=== PATIENT | male | born 1930 | race Caucasian/White ===

== ENCOUNTER 2016-11-17 06:53 | Inpatient (IN) | payer OTHER, MEDICARE ==
[2016-11-17] VITALS (12 sets, daily range): BP systolic 98–157; BP diastolic 50–72; PULSE 60–108; RESP 18–30; TEMP 97–99.4; O2SAT 95–100
[~2016-11-17] VITALS: Ht 182.9 cm; Wt 80.9 kg
[~2016-11-17 06:53] MED LIST: 1-ME1LIQ PO; ALBU8I INH; ASPI81 PO; ATOR80TA41 PO; CARV6.25 PO; COZA100T PO; CYAN100017 PO; ECASA PO; GABA400C5 PO; IRON27TA PO; ISOS30 PO; LORTA5 PO; NITR.4 SL; NITR100 PO; POLYPOW5 XX; PROM25TA5 PO; PROT40TA PO; SYMB160A INH; TAMS0.4C67 PO; TICA90 PO; VITA5000 PO; ZOLP10TA3 PO
[2016-11-17] MEDS ORDERED: ASPIRIN 81 MG CHEW TAB PO ONE (07:00)
[2016-11-17] MEDS ORDERED: NITROGLYCERIN 2% OINT 1 GM PACKET TOP ONE (07:00)
[2016-11-17] MEDS ORDERED: methylPREDNISolone SOD SUCC 125 MG/2 ML VIAL IVP ONE (07:00)
[2016-11-17] MEDS ORDERED: SODIUM CHLORIDE 0.9% FLUSH 5 ML FLUSH IVF PRN (07:00)
[2016-11-17] MEDS: RESP: ALBUTEROL 2.5 MG/IPRATROPIUM 0.5 MG NEB (SCH) INH (07:11)
--- NOTE | 2016-11-17 07:22 | PD ---
HPI Chief Complaint: Chest Pain Time Seen by Provider: 06:59 Travel History International Travel<30 days: No Contact w/Intl Traveler<30days: No Traveled to known affect area: No History of Present Illness HPI This is an 86-year-old man who presents to the emergency department complaining of chest pain cough and shortness of breath. Patient has a history of CAD with previous CABG and stents. He is followed by Dr. Latif. He also has a history of asthma. He states he has not felt well for for 5 days. Over the past couple days he's had more trouble with cough and congestion but also worsening pressure-like discomfort in his chest and shortness of breath. He apparently was at [facility] yesterday with these symptoms. He reports that his initial testing was initially negative but he left last night, possibly against advice. He returns today because of worsening trouble breathing and worsening chest pain. History Past Medical History Narrative Medical CAD, [place], CABG Asthma Hyperlipidemia BPH Social History Alcohol Use: No Tobacco Use: No Allergies-Medications (Allergen,Severity, Reaction): Coded Allergies: No Known Allergies (Unverified , 11/17/16) Reported Meds & Prescriptions Reported Meds & Active Scripts Active Brilinta 90 Mg Tab (Ticagrelor) 90 Mg Tab 90 Mg PO BID 30 Days Phenergan (Promethazine HCl) 25 Mg Tab 25 Mg PO Q6H PRN Nitroglycerin Tab 0.4 Mg Sl (Nitroglycerin) 0.4 Mg Subl 0.4 Mg SL Q5M PRN Macrobid (Nitrofurantoin Monohyd Macrocr) 100 Mg Cap 100 Mg PO BIDPC 5 Days Lortab 5/325 Tab (Hydrocodone-Acetaminophen) 1 Tab Tab 1 Tab PO Q6H PRN Imdur 30 Mg (Isosorbide Mononitrate) 30 Mg Tabcr 30 Mg PO DAILY@07 30 Days Coreg (Carvedilol) 6.25 Mg Tab 6.25 Mg PO Q12 30 Days Aspirin 81 Mg Chew 81 Mg PO DAILY Ecotrin Regular Strength (Aspirin) 325 Mg Tabec 325 Mg PO DAILY 30 Days Reported Iron (Ferrous Gluconate) 27 Mg Tab 27 Mg PO DAILY Vitamin D-3 (Cholecalciferol) 5,000 Unit Tab 5,000 Unit PO DAILY B-12 (Cyanocobalamin) 1 000 Cap 1,000 Mcg PO DAILY Polyethylene Glycol 3350 (Polyethylene Glycol 3350 (Bulk) 3,350 Mg Liq 3,350 Mg XX Zolpidem Tartrate 10 Mg Tab 10 Mg PO HS Symbicort (Budesonide/Formoterol Fumarate) 160 Mcg/4.5 Mcg Aer 2 Puff INH BID * SHAKE WELL BEFORE USE * Flomax (Tamsulosin HCl) 0.4 Mg Cap 0.4 Mg PO DAILY Gabapentin 400 Mg Cap 400 Mg PO DAILY Lipitor 80 Mg Tab (Atorvastatin) 80 Mg Tab 80 Mg PO HS-RT Cozaar (Losartan Potassium) 100 Mg Tab 100 Mg PO DAILY Protonix (Pantoprazole Sodium) 40 Mg Tab 40 Mg PO DAILY Ventolin Hfa (Albuterol Sulfate) 8 Gm Aero 1 Puff INH Q4HPRN * SHAKE WELL BEFORE USE * Amlodipine Besylate 10 Mg Tab 10 Mg PO DAILY Review of Systems Except as stated in HPI: all other systems reviewed are Neg Physical Exam Narrative GENERAL: 86-year-old man, mild to moderate respiratory distress, appears anxious. SKIN: Warm, little bit moist. HEAD: Atraumatic. Normocephalic. EYES: Pupils equal and round. No scleral icterus. No injection or drainage. ENT: No nasal bleeding or discharge. Mucous membranes pink and moist. NECK: Trachea midline. No JVD. CARDIOVASCULAR: Regular rate and rhythm. No murmur appreciated. RESPIRATORY: Diminished breath sounds left base. Some tight wheezing throughout the posterior lung seo. A few scattered crackles. No rhonchi. GASTROINTESTINAL: Abdomen soft, non-tender, nondistended. Hepatic and splenic margins not palpable. MUSCULOSKELETAL: No obvious deformities. No significant edema. NEUROLOGICAL: Awake and alert. No obvious cranial nerve deficits. Motor grossly within normal limits. Normal speech. PSYCHIATRIC: Anxious. Data Data Last Documented VS Vital Signs Date Time Temp Pulse Resp B/P Pulse Ox O2 Delivery O2 Flow Rate FiO2 11/17/16 07:54 100 Nasal Cannula 2 11/17/16 07:54 93 24 157/72 11/17/16 06:59 99.4 Orders Complete Blood Count With Diff (11/17/16 06:59) Comprehensive Metabolic Panel (11/17/16 06:59) B-Type Natriuretic Peptide (11/17/16 06:59) Act Partial Throm Time (Ptt) (11/17/16 06:59) Prothrombin Time / Inr (Pt) (11/17/16 06:59) Magnesium (Mg) (11/17/16 06:59) Troponin I (11/17/16 06:59) Iv Access Insert/Monitor (11/17/16 06:59) Ecg Monitoring (11/17/16 06:59) Oximetry (11/17/16 06:59) Oxygen Administration (11/17/16 06:59) Chest, Single Ap (11/17/16 06:59) Sodium Chloride 0.9% Flush (Ns Flush) (11/17/16 07:00) Methylprednisolone So Succ Inj (Solumedr (11/17/16 07:00) Albuterol-Ipratropium Neb (Duoneb Neb) (11/17/16 07:00) Aspirin Chew (Aspirin Chew) (11/17/16 07:00) Nitroglycerin 2% Oint (Nitroglycerin 2% (11/17/16 07:00) Electrocardiogram (11/17/16 06:59) Influenzae A/B Antigen (11/17/16 07:21) Ceftriaxone Inj (Rocephin Inj) (11/17/16 08:15) Azithromycin Inj (Zithromax Inj) (11/17/16 08:15) Consult Cardiology (11/17/16 ) Admit Order (Ed Use Only) (11/17/16 ) Admit To Inpatient (11/17/16 ) Code Status (11/17/16 08:40) Vital Signs (Adult) Q4H (11/17/16 08:40) Activity Oob With Assistance (11/17/16 08:40) Diet Heart Healthy (11/17/16 Breakfast) Sodium Chloride 0.9% Flush (Ns Flush) (11/17/16 08:45) Sodium Chloride 0.9% Flush (Ns Flush) (11/17/16 09:00) Acetaminophen (Tylenol) (11/17/16 08:45) Ondansetron Inj (Zofran Inj) (11/17/16 08:45) Temazepam (Restoril) (11/17/16 08:45) Comprehensive Metabolic Panel (11/18/16 06:00) Complete Blood Count With Diff (11/18/16 06:00) Creatine Kinase (Cpk) (11/17/16 13:30) Creatine Kinase (Cpk) (11/17/16 19:30) Troponin I (11/17/16 13:30) Troponin I (11/17/16 19:30) Electrocardiogram (11/17/16 13:30) Electrocardiogram (11/17/16 19:30) Case Management Consult (11/17/16 08:40) Scd Bilateral/Knee High DORITA.BID (11/17/16 08:40) Cameron Bilateral/Knee High DORITA.QSHIFT (11/17/16 08:40) Acetaminophen (Tylenol) (11/17/16 08:45) Naloxone Inj (Narcan Inj) (11/17/16 08:45) Inpatient Certification (11/17/16 ) B-Type Natriuretic Peptide (11/18/16 06:00) Albuterol-Ipratropium Neb (Duoneb Neb) (11/17/16 08:45) Magnesium (Mg) (11/17/16 08:43) Phosphorus (Po4) (11/17/16 08:43) Pt Request For Service (11/17/16 08:43) Labs Laboratory Tests Test 11/17/16 07:15 White Blood Count 8.0 TH/MM3 Red Blood Count 3.36 MIL/MM3 Hemoglobin 10.8 GM/DL Hematocrit 31.6 % Mean Corpuscular Volume 93.9 FL Mean Corpuscular Hemoglobin 32.2 PG Mean Corpuscular Hemoglobin 34.3 % Concent Red Cell Distribution Width 14.8 % Platelet Count 170 TH/MM3 Mean Platelet Volume 8.3 FL Neutrophils (%) (Auto) 74.7 % Lymphocytes (%) (Auto) 15.5 % Monocytes (%) (Auto) 7.6 % Eosinophils (%) (Auto) 1.8 % Basophils (%) (Auto) 0.4 % Neutrophils # (Auto) 6.0 TH/MM3 Lymphocytes # (Auto) 1.2 TH/MM3 Monocytes # (Auto) 0.6 TH/MM3 Eosinophils # (Auto) 0.1 TH/MM3 Basophils # (Auto) 0.0 TH/MM3 CBC Comment DIFF FINAL Differential Comment Prothrombin Time 12.0 SEC Prothromb Time International 1.1 RATIO Ratio Activated Partial 30.7 SEC Thromboplast Time Sodium Level 142 MEQ/L Potassium Level 3.8 MEQ/L Chloride Level 109 MEQ/L Carbon Dioxide Level 23.9 MEQ/L Anion Gap 9 MEQ/L Blood Urea Nitrogen 11 MG/DL Creatinine 1.05 MG/DL Estimat Glomerular Filtration 67 ML/MIN Rate Random Glucose 117 MG/DL Calcium Level 8.6 MG/DL Magnesium Level 2.0 MG/DL Total Bilirubin 0.6 MG/DL Aspartate Amino Transf 22 U/L (AST/SGOT) Alanine Aminotransferase 15 U/L (ALT/SGPT) Alkaline Phosphatase 79 U/L Troponin I 0.46 NG/ML B-Type Natriuretic Peptide 716 PG/ML Total Protein 7.0 GM/DL Albumin 3.6 GM/DL [facility] Medical Decision Making Medical Screen Exam Complete: Yes Emergency Medical Condition: Yes Interpretation(s) My review of EKG: Normal sinus rhythm at a rate of 97, occasional PVC, left bundle branch block, no definite evidence of acute ischemia. Bibasilar patchy opacities atelectasis versus infiltrate. LABS: CBC unremarkable CMP unremarkable Troponin 0.46 BNP 716 Coags unremarkable Influenza negative Differential Diagnosis Pneumonia, asthma, ACS, influenza, other Narrative Course Medical decision making INITIAL: 86-year-old male presents to emergency department to 3 days of worsening cough congestion and wheezing associated with pressure-like chest discomfort. History of both CAD and asthma. In an outside hospital yesterday. EKG shows left bundle branch block, not significant change from previous. We' ll check x-ray, labs, aspirin, nitrates, bronchodilators, steroids, reassess. Chris Jean Baptiste MD Nov 17, 2016 07:22
[2016-11-17 07:31] LABS: BASOPHIL % 0.4 % (0.0-2.0); EOSINOPHIL # 0.1 TH/MM3 (0-0.4); EOSINOPHIL % 1.8 % (0.0-4.0); HEMATOCRIT 31.6 % (39.0-51.0); HEMO FLAGS DIFF FINAL; LYMPH % 15.5 % (9.0-44.0); LYMPHOCYTE # 1.2 TH/MM3 (1.0-4.8); MEAN CELL VOLUME 93.9 FL (80.0-100.0); MEAN CORPUSCULAR HEMOGLOBIN 32.2 PG (27.0-34.0); MEAN CORPUSCULAR HGB CONC 34.3 % (32.0-36.0); MONO % 7.6 % (0.0-8.0); NEUT % 74.7 % (16.0-70.0); PLATELET COUNT 170 TH/MM3 (150-450); RED BLOOD COUNT 3.36 MIL/MM3 (4.50-5.90); RED CELL DISTRIBUTION WIDTH 14.8 % (11.6-17.2)
[2016-11-17 07:37] LABS: APTT (PATIENT) 30.7 SEC (24.3-30.1); INTERNATIONAL NORMALIZED RATIO 1.1 RATIO
[2016-11-17 07:48] LABS: ALT (GPT) 15 U/L (12-78); ANION GAP 9 MEQ/L (5-15); AST (GOT) 22 U/L (15-37); BICARBONATE 23.9 MEQ/L (21.0-32.0); BLOOD UREA NITROGEN 11 MG/DL (7-18); CHLORIDE 109 MEQ/L (98-107); GLOMERULAR FILTRATION RATE 67 ML/MIN (>89); POTASSIUM 3.8 MEQ/L (3.5-5.1); SODIUM (NA) 142 MEQ/L (136-145)
[2016-11-17 07:51] LABS: ALKALINE PHOSPHATASE 79 U/L (45-117); TOTAL BILIRUBIN ADULT 0.6 MG/DL (0.2-1.0)
--- NOTE | 2016-11-17 08:03 | RADRPT ---
EXAM DATE/TIME: 11/17/2016 07:23 [place] COMPARISON: CHEST SINGLE AP, June 12, 2014, 19:16. INDICATIONS : Shortness of breath. MEDICAL HISTORY : None. SURGICAL HISTORY : CABG. ENCOUNTER: Initial ACUITY: 1 day PAIN SCORE: 0/10 LOCATION: Bilateral chest FINDINGS: A single view of the chest demonstrates diminished lung volumes with bibasilar patchy opacities. Prev ious CABG. Heart size borderline enlarged. The cardiomediastinal contours are unremarkable. Osseous structures are intact. CONCLUSION: Bibasilar patchy opacities could be atelectasis or infiltrate. Mundo Henderson MD on November 17, 2016 at 8:00 Board Certified Radiologist. This report was verified electronically.
[2016-11-17] MEDS ORDERED: cefTRIAXone INJ 1,000 MG in SODIUM CHLORIDE 0.9% INJ 100 ML IV ONE (08:15)
[2016-11-17] MEDS ORDERED: AZITHROMYCIN INJ 500 MG in SODIUM CHLOR 0.9% 250 ML INJ 250 ML IV ONE (08:15)
[2016-11-17] MEDS ORDERED: ACETAMINOPHEN 325 MG TAB PO PRN ×2 (08:45)
[2016-11-17] MEDS ORDERED: NALOXONE HCL 0.4 MG/ML AMP IV PRN (08:45)
[2016-11-17] MEDS ORDERED: ONDANSETRON HCL 4 MG/2 ML VIAL IVP PRN (08:45)
[2016-11-17] MEDS ORDERED: TEMAZEPAM 15 MG CAP PO PRN (08:45)
[2016-11-17] MEDS: SODIUM CHLORIDE 0.9% FLUSH 5 ML FLUSH FLUSH SCH ×2 (09:00→20:59)
[2016-11-17] MEDS ORDERED: SYMB160A INH (09:46)
[2016-11-17] MEDS ORDERED: ATOR1TAB18 PO (09:46)
[2016-11-17] MEDS ORDERED: AMLO10TA2 PO (09:46)
[2016-11-17] MEDS ORDERED: CARV12.5 PO (09:46)
[2016-11-17] MEDS ORDERED: TRAM50TA PO (09:46)
[2016-11-17] MEDS ORDERED: IPRAAER INH (09:46)
[2016-11-17] MEDS ORDERED: OMEP20TA PO (09:46)
[2016-11-17] MEDS ORDERED: GABA400C5 PO (09:46)
[2016-11-17] MEDS: RESP: ALBUTEROL 2.5 MG/IPRATROPIUM 0.5 MG NEB (PRN) NEB (11:23)
--- NOTE | 2016-11-17 12:12 | HHI.HP ---
[facility] Jay Chávez MD Admission Diagnosis PNA, r/o OR Diagnoses: (1) Community acquired pneumonia (2) Atypical chest pain (3) Hypertension (4) Coronary artery disease (5) Hyperlipidemia (6) Troponin level elevated Chief Complaint: Shortness of breath Travel History International Travel<30 Days: No Contact w/Intl Traveler <30 Da: No Traveled to Known Affected Are: No History of Present Illness 86 year-old male with a history of hypertension, CAD, prior history of CABG who presented to the ED for evaluation of shortness of breath 2 days along with atypical substernal chest pain. Patient was seen at [facility] on 11/16/16 and diagnosed with pneumonia for which he was treated with antibiotics, admitted for observation and had PE ruled out per patient account, however sign AMA. He Came today because, stated equal hardly breathe and he was having constant nonradiating substernal chest pain along with nonproductive cough. He denies any febrile episode. Patient states all imaging studies at [facility] where unremarkable. He has no GI bleed Review of Systems Other 12 systems reviewed and are negative except for the one mentioned in the history of present illness Past Family Social History Past Medical History CAD, [place], CABG Asthma Hyperlipidemia BPH Past Surgical History Cholecystectomy: Yes Coronary Artery Bypass Graft: Yes (X 3 VESSELS) Bilateral knees repair Reported Medications Brilinta 90 Mg Tab (Ticagrelor) 90 Mg Tab 90 Mg PO BID 30 Days Phenergan (Promethazine HCl) 25 Mg Tab 25 Mg PO Q6H PRN Nitroglycerin Tab 0.4 Mg Sl (Nitroglycerin) 0.4 Mg Subl 0.4 Mg SL Q5M PRN Macrobid (Nitrofurantoin Monohyd Macrocr) 100 Mg Cap 100 Mg PO BIDPC 5 Days Lortab 5/325 Tab (Hydrocodone-Acetaminophen) 1 Tab Tab 1 Tab PO Q6H PRN Imdur 30 Mg (Isosorbide Mononitrate) 30 Mg Tabcr 30 Mg PO DAILY@07 30 Days Coreg (Carvedilol) 6.25 Mg Tab 6.25 Mg PO Q12 30 Days Aspirin 81 Mg Chew 81 Mg PO DAILY Ecotrin Regular Strength (Aspirin) 325 Mg Tabec 325 Mg PO DAILY 30 Days Reported Iron (Ferrous Gluconate) 27 Mg Tab 27 Mg PO DAILY Vitamin D-3 (Cholecalciferol) 5,000 Unit Tab 5,000 Unit PO DAILY B-12 (Cyanocobalamin) 1 000 Cap 1,000 Mcg PO DAILY Polyethylene Glycol 3350 (Polyethylene Glycol 3350 (Bulk) 3,350 Mg Liq 3,350 Mg XX Zolpidem Tartrate 10 Mg Tab 10 Mg PO HS Symbicort (Budesonide/Formoterol Fumarate) 160 Mcg/4.5 Mcg Aer 2 Puff INH BID * SHAKE WELL BEFORE USE * Flomax (Tamsulosin HCl) 0.4 Mg Cap 0.4 Mg PO DAILY Gabapentin 400 Mg Cap 400 Mg PO DAILY Lipitor 80 Mg Tab (Atorvastatin) 80 Mg Tab 80 Mg PO HS-RT Cozaar (Losartan Potassium) 100 Mg Tab 100 Mg PO DAILY Protonix (Pantoprazole Sodium) 40 Mg Tab 40 Mg PO DAILY Ventolin Hfa (Albuterol Sulfate) 8 Gm Aero 1 Puff INH Q4HPRN * SHAKE WELL BEFORE USE * Amlodipine Besylate 10 Mg Tab 10 Mg PO DAILY Allergies: Coded Allergies: No Known Allergies (Unverified , 11/17/16) Family History He denies any family history of hypertension, diabetes, cancer Social History Alcohol Use: No Tobacco Use: No Physical Exam Vital Signs Vital Signs Date Time Temp Pulse Resp B/P Pulse Ox O2 Delivery O2 Flow Rate FiO2 11/17/16 10:47 98 18 121/63 100 Nasal Cannula 2 11/17/16 10:11 97 Nasal Cannula 2 11/17/16 10:05 105 18 116/67 97 Nasal Cannula 2 11/17/16 10:05 98 Nasal Cannula 2 11/17/16 10:01 105 18 116/67 98 Nasal Cannula 2 11/17/16 10:01 105 98 Nasal Cannula 2 11/17/16 07:54 100 Nasal Cannula 2 11/17/16 07:54 93 24 157/72 100 Nasal Cannula 2 11/17/16 07:54 93 100 Nasal Cannula 2 11/17/16 07:11 95 Nasal Cannula 4.00 11/17/16 07:03 98 Nasal Cannula 4 11/17/16 06:59 99.4 100 30 157/72 98 11/17/16 06:50 99 4.00 Physical Exam GENERAL: This is a well-nourished, well-developed patient, in no apparent distress. SKIN: No rashes, ecchymoses or lesions. Cool and dry. HEAD: Atraumatic. Normocephalic. No temporal or scalp tenderness. EYES: Pupils equal round and reactive. Extraocular motions intact. No scleral icterus. No injection or drainage. ENT: Nose without bleeding, purulent drainage or septal hematoma. Throat without erythema, tonsillar hypertrophy or exudate. Uvula midline. Airway patent. NECK: Trachea midline. No JVD or lymphadenopathy. Supple, nontender, no meningeal signs. CARDIOVASCULAR: Regular rate and rhythm without murmurs, gallops, or rubs. RESPIRATORY: Clear to auscultation. Breath sounds equal bilaterally. No wheezes , rales, or rhonchi. GASTROINTESTINAL: Abdomen soft, non-tender, nondistended. No hepato-splenomegaly , or palpable masses. No guarding. MUSCULOSKELETAL: Extremities without clubbing, cyanosis, or edema. No joint tenderness, effusion, or edema noted. No calf tenderness. Negative Homans sign bilaterally. NEUROLOGICAL: Awake and alert. Cranial nerves II through XII intact. Motor and sensory grossly within normal limits. Five out of 5 muscle strength in all muscle groups. Normal speech. Laboratory Laboratory Tests Test 11/17/16 07:15 White Blood Count 8.0 Red Blood Count 3.36 Hemoglobin 10.8 Hematocrit 31.6 Mean Corpuscular Volume 93.9 Mean Corpuscular Hemoglobin 32.2 Mean Corpuscular Hemoglobin 34.3 Concent Red Cell Distribution Width 14.8 Platelet Count 170 Mean Platelet Volume 8.3 Neutrophils (%) (Auto) 74.7 Lymphocytes (%) (Auto) 15.5 Monocytes (%) (Auto) 7.6 Eosinophils (%) (Auto) 1.8 Basophils (%) (Auto) 0.4 Neutrophils # (Auto) 6.0 Lymphocytes # (Auto) 1.2 Monocytes # (Auto) 0.6 Eosinophils # (Auto) 0.1 Basophils # (Auto) 0.0 CBC Comment DIFF FINAL Differential Comment Prothrombin Time 12.0 Prothromb Time International 1.1 Ratio Activated Partial 30.7 Thromboplast Time Sodium Level 142 Potassium Level 3.8 Chloride Level 109 Carbon Dioxide Level 23.9 Anion Gap 9 Blood Urea Nitrogen 11 Creatinine 1.05 Estimat Glomerular Filtration 67 Rate Random Glucose 117 Calcium Level 8.6 Magnesium Level 2.0 Total Bilirubin 0.6 Aspartate Amino Transf 22 (AST/SGOT) Alanine Aminotransferase 15 (ALT/SGPT) Alkaline Phosphatase 79 Troponin I 0.46 B-Type Natriuretic Peptide 716 Total Protein 7.0 Albumin 3.6 Date/Time Procedure Status Source Growth 11/17/16 07:45 Influenza Types A,B Antigen (RADHA) - Final Complete Nasal Washing NEGATIVE FOR FLU A AND B ANTIGEN.... Result Diagram: 11/17/1671411/17/1615 Imaging Last Impressions Chest X-Ray 11/17/16 0659 Signed Impressions: Service Date/Time: Tuesday, November 17, 2016 07:23 - CONCLUSION: Bibasilar patchy opacities could be atelectasis or infiltrate. Mundo Henderson MD Assessment and Plan Problem List: (1) Community acquired pneumonia ICD Code: J18.9 Status: Acute (2) Atypical chest pain ICD Code: R07.89 Status: Acute (3) Troponin level elevated ICD Code: R74.8 Status: Acute (4) Coronary artery disease ICD Code: I25.9 Status: Acute (5) Hyperlipidemia ICD Code: E78.5 Status: Acute (6) Hypertension ICD Code: I10 Status: Acute Assessment and Plan 86-year-old male with 2-Mxckbtqpp-upctrqzn pneumonia: Status post azithromycin and Rocephin IV 1 in ED, continue with antibiotics and monitor culture. Chest x-ray noted and reviewed by me with finding of bypass opacity. Influenza A and B antigens negative . Check sputum culture. Request all imagine studies from [facility] and consider CTA to rule out PE if not performed 2-Atypical chest pain: May be secondary to current infectious process however secondary to elevated troponin I rule out ACS per protocol with serial cardiac enzyme and EKGs 3-History of CAD and now patient with elevated troponin I: CABG in the , heart catheterization 06/13/14 with stenting of MONTANEZ to LAD. ACS rule out per protocol with serial cardiac enzyme and EKG pending evaluation from cardiology. Resume Coreg, Lipitor and aspirin. Nitroglycerin supplement when necessary 4-Hypertension: Resume Coreg and Norvasc 5-Hyperlipidemia: Resume Lipitor 6-History of COPD: No current exacerbation, chest x-ray noted and reviewed by me. We will request all imagine studies from [facility]. Continue with Symbicort, DuoNeb when necessary 7-DVT prophylaxis: Lovenox Code Status Full code Discussed Condition With Patient, ED physician Physician Certification 2 Midnight Certification Type: Admission for Inpatient Services Order for Inpatient Services The services are ordered in accordance with Medicare regulations or non- Medicare payer requirements, as applicable. In the case of services not specified as inpatient-only, they are appropriately provided as inpatient services in accordance with the 2-midnight benchmark. Estimated LOS (days): 2 days is the estimated time the patient will need to remain in the hospital, assuming treatment plan goals are met and no additional complications. Post-Hospital Plan: Not yet determined Mundo Molina MD Nov 17, 2016 12:12
[2016-11-17] MEDS: ALPRAZolam 0.5 MG TAB PO PRN (14:28)
[2016-11-17] MEDS ORDERED: diphenhydrAMINE HCL 50 MG CAP PO SCH (15:15)
[2016-11-17] MEDS ORDERED: ASPIRIN 325 MG TAB PO SCH (15:15)
[2016-11-17] MEDS ORDERED: DIAZEPAM 10 MG TAB PO SCH (15:15)
--- NOTE | 2016-11-17 18:22 | MB ---
cc: TEODORO OLIVO MD, GLEN DATE OF CONSULTATION: 11/17/2016 REASON FOR CONSULTATION: Chest pain, abnormal troponin level. HISTORY OF PRESENT ILLNESS: The patient is an 86 year-old white male followed in our office by Dr. Teodoro Olivo with a history of coronary artery disease, peripheral vascular disease, hypertension, hyperlipidemia, chronic left bundle-branch block, who initially presented to [facility] a couple of days ago with complaints of increasing shortness of breath and chest discomfort as well as an overall nonproductive cough. He was recommended admission there but he signed out against medical advice. CT angiogram of the chest was obtained showing no evidence for pulmonary embolism. There was suggestion of very small bilateral pleural effusions. The patient states he has been experiencing progressively worsening dyspnea over the last few weeks especially over the last several days. During this time period he has had a minimal non-productive cough without fevers, hemoptysis. In the last two days he has had episodic substernal chest "burning," especially severe when he came to the emergency department here at [place]. He believes the episode of chest burning lasted about two hours and was associated with severe shortness of breath. Since coming to the hospital he has had no further chest discomfort and his dyspnea has overall improved. He denies dizziness, syncope, near-syncope, palpitations, pedal edema, paroxysmal nocturnal dyspnea. He has been somewhat noncompliant with daily aspirin. PAST MEDICAL HISTORY: 1. History of abdominal aortic aneurysm apparently status post repair. 2. Coronary disease status post bypass surgery 1996 with placement of three stents in 2008 and placement of a 2.25-mm Resolute stent at the anastomosis site of the left internal mammary artery to the LAD May 2014. 3. COPD. 4. Gastroesophageal reflux disease. 5. Hyperlipidemia. 6. Hypertension 7. Ischemic cardiomyopathy, reportedly with ejection fraction of approximately 40%. 8. Chronic left bundle-branch block. 9. Subdural hematoma caused by head trauma after a fall 04/10/2015. 10. Paroxysmal atrial fibrillation apparently diagnosed about six months ago. CARDIAC MEDICATIONS AT HOME: 1. Amlodipine 10 mg daily. 2. Cozaar 100 milligrams qd. 3. Lipitor or 80 mg q.h.s. 4. Aspirin 81 mg daily. 5. Coreg 6.25 mg b.i.d. 6. Imdur 30 milligrams daily 7. Brilinta 90 mg b.i.d. ALLERGIES NO KNOWN DRUG ALLERGIES. FAMILY HISTORY Noncontributory. SOCIAL HISTORY The patient is a former smoker. There is no history of alcohol abuse. REVIEW OF SYSTEMS: As in the history of present illness otherwise negative or noncontributory. He also denies headache, abdominal pain, melena, dyspepsia, bright red blood per rectum. PHYSICAL EXAMINATION VITAL SIGNS: Blood pressure 128/71 with a pulse of 108, respirations 20. GENERAL: He is a well-developed, well-nourished white male in no acute distress HEENT examination: Jugular venous pressure is normal. Carotid pulses are 2+ bilaterally and without bruits. Chest: Examination of the chest reveals unlabored respiratory effort with diminished breath sounds diffusely. Cardiac examination: He has a regular rhythm and rate without S3-S4 or murmur. Abdominal examination: He has a soft, nontender abdomen. Bowel sounds are present. There is no definite hepatosplenomegaly. Extremities: Reveals no clubbing, cyanosis or edema. Femoral pulses are 2+ bilaterally. LABORATORY DATA: WBC 8.0, hemoglobin 10.8, platelets 170, potassium 3.8, BUN 11, creatinine 1.05, troponin 0.46, CK is pending. Chest x-ray: Shows bibasilar patchy opacities possibly atelectasis or infiltrate. EKG: Shows sinus rhythm with occasional PVC, left bundle-branch block. IMPRESSION Symptoms suggestive of recurrent angina in an unstable pattern in this 86-year-old white male with a history of known coronary artery disease status post surgical and percutaneous coronary interventions in the past, history of paroxysmal atrial fibrillation, peripheral vascular disease, ischemic cardiomyopathy, COPD. EKG is nondiagnostic due to chronic left bundle branch block. Troponin level is slightly abnormal at 0.46 (as I recall at [facility] 2 days ago it was only 0.04). He did have residual borderline disease in his vein graft to the right coronary artery seen on cardiac catheterization a couple years ago, treated medically. He may have had progression of disease in this bypass graft. Because of the instability of his symptoms and the abnormal troponin level, I have recommended he undergo cardiac catheterization with possible percutaneous coronary or graft intervention The nature of these procedures and potential risks have been outlined to the patient who agrees to proceed. With respect to his thromboembolic risk with his history of paroxysmal atrial fibrillation, it is at least moderately elevated. The patient states he was on anticoagulation therapy, possibly Eliquis, in the past and he is unsure why it was discontinued. He did have discontinuation of Brilinta in March 2015 about 9 months after placement of his stents in the left internal mammary artery anastomosis site. RECOMMENDATIONS 1. Cardiac catheterization tomorrow. 2. Continue his usual home cardiac medications. 3. Will leave decisions regarding anticoagulation therapy for his paroxysmal atrial fibrillation with Dr. Olivo in the near future on outpatient follow up. MD ANTON Love/HARI /3:03 PM /4:50 PM MTDD
[2016-11-17] MEDS: PANTOPRAZOLE SOD 20 MG DELAYED RELEASE TAB PO SCH (20:57)
[2016-11-17] MEDS: GABAPENTIN 400 MG CAP PO SCH (20:57)
[2016-11-17] MEDS: BUDESONIDE-FORMOTEROL 160/4.5 MCG INHALER INH SCH (20:58)
[2016-11-17] MEDS: ATORVASTATIN 40 MG TAB PO SCH (20:58)
--- NOTE | 2016-11-17 21:54 | EKG ---
Date Performed: 11/17/2016 Time Performed: 06:59:09 PTAGE: 86 years EKG: Sinus rhythm WITH OCCASIONAL VENTRICULAR PREMATURE COMPLEXES LEFT BUNDLE BRANCH BLOCK ABNORMAL ECG PREVIOUS TRACING : 06/17/2014 09.31 Compared to the previous tracing, rate faster DOCTOR: Lily Connors Interpretating Date/Time 11/17/2016 21:53:30
--- NOTE | 2016-11-17 22:33 | EKG ---
Date Performed: 11/17/2016 Time Performed: 18:36:52 PTAGE: 86 years EKG: Sinus rhythm LEFT BUNDLE BRANCH BLOCK ABNORMAL ECG PREVIOUS TRACING : 11/17/2016 06.59 Compared to prior tracing no significant change DOCTOR: Parmjit Shin Interpretating Date/Time 11/17/2016 22:31:49
[2016-11-17] MEDS ORDERED: HEPARIN SODIUM - IV 10,000 UNITS/10 ML VIAL IV ONE (22:45)
[2016-11-17] MEDS ORDERED: HEPARIN-D5W INJ 250 ML IV SCH (22:45)
[2016-11-17] MEDS ORDERED: TIROFIBAN BOLUS IV ONE (23:15)
[2016-11-18] VITALS (19 sets, daily range): BP systolic 80–150; BP diastolic 42–74; PULSE 57–96; RESP 16–34; TEMP 97–98.6; O2SAT 84–100
[2016-11-18] MEDS: NITROGLYCERIN 0.4 MG SL 25 TABS/BTL SL PRN ×3 (00:27→01:57)
[2016-11-18 00:57] LABS: AUTOMATED NEUTROPHIL # 4.8 TH/MM3 (1.8-7.7); HEMATOCRIT 30.8 % (39.0-51.0); HEMO FLAGS DIFF FINAL; LYMPH % 9.2 % (9.0-44.0); LYMPHOCYTE # 0.5 TH/MM3 (1.0-4.8); MEAN CELL VOLUME 94.1 FL (80.0-100.0); MEAN CORPUSCULAR HEMOGLOBIN 32.6 PG (27.0-34.0); MEAN CORPUSCULAR HGB CONC 34.6 % (32.0-36.0); MONO % 1.7 % (0.0-8.0); NEUT % 89.1 % (16.0-70.0); PLATELET COUNT 169 TH/MM3 (150-450); RED BLOOD COUNT 3.27 MIL/MM3 (4.50-5.90); RED CELL DISTRIBUTION WIDTH 14.9 % (11.6-17.2); WHITE BLOOD COUNT 5.3 TH/MM3 (4.0-11.0)
[2016-11-18 01:21] LABS: APTT (PATIENT) 33.4 SEC (24.3-30.1); PROTHROMBIN TIME - PATIENT 10.8 SEC (9.8-11.6)
[2016-11-18] MEDS ORDERED: CHLORHEXIDINE GLUCONATE 2 % 1 PACK (2 CLOTHS)(extra cloths) TOP PRN (01:45)
[2016-11-18] MEDS: TIROFIBAN INFUSION INJ 250 ML IV SCH ×2 (01:46→16:51)
[2016-11-18] MEDS: ALPRAZolam 0.5 MG TAB PO PRN ×2 (01:57→08:00)
[2016-11-18] MEDS: CHLORHEXIDINE GLUCONATE 2 % 1 PACK (2 CLOTHS)(taper/protocol) TOP SCH ×2 (04:00→22:43)
[2016-11-18 07:17] LABS: AUTOMATED NEUTROPHIL # 5.2 TH/MM3 (1.8-7.7); BASOPHIL % 0.1 % (0.0-2.0); HEMATOCRIT 26.5 % (39.0-51.0); HEMO FLAGS DIFF FINAL; LYMPH % 8.1 % (9.0-44.0); LYMPHOCYTE # 0.5 TH/MM3 (1.0-4.8); MEAN CELL VOLUME 93.7 FL (80.0-100.0); MEAN CORPUSCULAR HEMOGLOBIN 32.2 PG (27.0-34.0); MEAN CORPUSCULAR HGB CONC 34.4 % (32.0-36.0); MONO % 2.7 % (0.0-8.0); NEUT % 89.1 % (16.0-70.0); PLATELET COUNT 152 TH/MM3 (150-450); RED BLOOD COUNT 2.83 MIL/MM3 (4.50-5.90); RED CELL DISTRIBUTION WIDTH 14.6 % (11.6-17.2); WHITE BLOOD COUNT 5.9 TH/MM3 (4.0-11.0)
[2016-11-18 07:28] LABS: APTT (PATIENT) 106.3 SEC (24.3-30.1)
[2016-11-18] MEDS ORDERED: RESP: ALBUTEROL 2.5 MG/IPRATROPIUM 0.5 MG NEB (SCH) ONE (07:41)
[2016-11-18] MEDS: RESP: ALBUTEROL 2.5 MG/IPRATROPIUM 0.5 MG NEB (PRN) NEB ×5 (07:43→19:24)
[2016-11-18 08:21] LABS: ALKALINE PHOSPHATASE 58 U/L (45-117); ALT (GPT) 13 U/L (12-78); ANION GAP 9 MEQ/L (5-15); AST (GOT) 16 U/L (15-37); BICARBONATE 22.8 MEQ/L (21.0-32.0); BLOOD UREA NITROGEN 19 MG/DL (7-18); CHLORIDE 107 MEQ/L (98-107); GLOMERULAR FILTRATION RATE 69 ML/MIN (>89); POTASSIUM 4.2 MEQ/L (3.5-5.1); SODIUM (NA) 139 MEQ/L (136-145); TOTAL BILIRUBIN ADULT 0.6 MG/DL (0.2-1.0)
--- NOTE | 2016-11-18 08:30 | PD.CARD.PN ---
Subjective Subjective Remarks Emotionally upset this morning. Moderate dyspnea earlier, better now. Brief few minutes of substernal chest burning earlier. No dizziness, nausea, palpitations. Objective Medications Item Value Date Time Amlodipine 10 mg 11/18/16 0900 Besylate DAILY/PO (Norvasc) Carvedilol 12.5 mg 11/18/16 0900 (Coreg) DAILY/PO Aspirin 81 mg 11/18/16 0900 (Ecotrin Ec) DAILY/PO Tirofiban/Sodium 250 ml @ 15.894 mls/hr 11/17/16 2320 Chloride [id number]/IV 11/18/16 0146 Heparin Sodium/ 250 ml @ 0 mls/hr 11/17/16 2245 Dextrose TITRATE/IV 11/18/16 0150 Atorvastatin 40 mg 11/17/16 2100 Calcium HS/PO 11/17/162057 (Lipitor) Vital Signs / I&O Vital Signs Date Time Temp Pulse Resp B/P Pulse Ox O2 Delivery O2 Flow Rate FiO2 11/18/16 08:16 98 Nasal Cannula 2.00 11/18/16 07:43 98 Nasal Cannula 4.00 11/18/16 04:00 98.2 75 23 143/66 98 11/18/16 03:28 98 Nasal Cannula 4.00 11/18/16 01:26 98.0 78 16 137/63 97 11/18/16 01:00 84 11/18/16 00:29 88 95 11/18/16 00:00 97.3 76 18 150/70 94 11/17/16 20:00 97.5 86 18 154/67 98 11/17/16 16:10 94 11/17/16 15:55 97.7 89 20 126/60 97 11/17/16 12:08 97.3 108 20 128/71 99 11/17/16 10:47 98 18 121/63 100 Nasal Cannula 2 11/17/16 10:11 97 Nasal Cannula 2 11/17/16 10:05 105 18 116/67 97 Nasal Cannula 2 11/17/16 10:05 98 Nasal Cannula 2 11/17/16 10:01 105 18 116/67 98 Nasal Cannula 2 11/17/16 10:01 105 98 Nasal Cannula 2 I/O 11/17/16 11/17/16 11/17/16 11/18/16 11/18/1611/18/17 07:00 15:00 23:00 07:00 15:00 23:00 Intake Total 240 ml 360 ml 154 ml Output Total 300 ml Balance 240 ml 360 ml -146 ml Intake Oral 240 ml 360 ml IV Total 154 ml Output Urine Total 300 ml # Voids 2 Physical Exam GENERAL: Well developed, well nourished. No acute distress. HEENT: Jugular venous pressure is normal. CHEST: Lungs clear to auscultation bilaterally. Unlabored respiratory effort. CARDIAC: Regular rate and rhythm without S3, S4, or murmur. ABDOMEN: Soft, nontender, no hepatosplenomegaly. Bowel sounds present. EXTREMITIES: No clubbing, cyanosis, or edema. Laboratory Laboratory Tests Test 11/17/16 11/17/16 11/17/16 11/18/16 12:50 14:07 20:04 00:27 Magnesium Level 2.2 MG/DL Total Creatine Kinase 74 U/L 82 U/L Troponin I 0.72 NG/ML 0.92 NG/ML Phosphorus Level 2.0 MG/DL White Blood Count 5.3 TH/MM3 Red Blood Count 3.27 MIL/MM3 Hemoglobin 10.7 GM/DL Hematocrit 30.8 % Mean Corpuscular Volume 94.1 FL Mean Corpuscular Hemoglobin 32.6 PG Mean Corpuscular Hemoglobin 34.6 % Concent Red Cell Distribution Width 14.9 % Platelet Count 169 TH/MM3 Mean Platelet Volume 8.8 FL Neutrophils (%) (Auto) 89.1 % Lymphocytes (%) (Auto) 9.2 % Monocytes (%) (Auto) 1.7 % Eosinophils (%) (Auto) 0.0 % Basophils (%) (Auto) 0.0 % Neutrophils # (Auto) 4.8 TH/MM3 Lymphocytes # (Auto) 0.5 TH/MM3 Monocytes # (Auto) 0.1 TH/MM3 Eosinophils # (Auto) 0.0 TH/MM3 Basophils # (Auto) 0.0 TH/MM3 CBC Comment DIFF FINAL Differential Comment Prothrombin Time 10.8 SEC Prothromb Time International 1.0 RATIO Ratio Activated Partial 33.4 SEC Thromboplast Time Test 11/18/16 11/18/16 01:28 05:50 Nasal Screen MRSA (PCR) NEGATIVE White Blood Count 5.9 TH/MM3 Red Blood Count 2.83 MIL/MM3 Hemoglobin 9.1 GM/DL Hematocrit 26.5 % Mean Corpuscular Volume 93.7 FL Mean Corpuscular Hemoglobin 32.2 PG Mean Corpuscular Hemoglobin 34.4 % Concent Red Cell Distribution Width 14.6 % Platelet Count 152 TH/MM3 Mean Platelet Volume 9.0 FL Neutrophils (%) (Auto) 89.1 % Lymphocytes (%) (Auto) 8.1 % Monocytes (%) (Auto) 2.7 % Eosinophils (%) (Auto) 0.0 % Basophils (%) (Auto) 0.1 % Neutrophils # (Auto) 5.2 TH/MM3 Lymphocytes # (Auto) 0.5 TH/MM3 Monocytes # (Auto) 0.2 TH/MM3 Eosinophils # (Auto) 0.0 TH/MM3 Basophils # (Auto) 0.0 TH/MM3 CBC Comment DIFF FINAL Differential Comment Activated Partial 106.3 SEC Thromboplast Time Sodium Level 139 MEQ/L Potassium Level 4.2 MEQ/L Chloride Level 107 MEQ/L Carbon Dioxide Level 22.8 MEQ/L Anion Gap 9 MEQ/L Blood Urea Nitrogen 19 MG/DL Creatinine 1.02 MG/DL Estimat Glomerular Filtration 69 ML/MIN Rate Random Glucose 145 MG/DL Calcium Level 8.6 MG/DL Total Bilirubin 0.6 MG/DL Aspartate Amino Transf 16 U/L (AST/SGOT) Alanine Aminotransferase 13 U/L (ALT/SGPT) Alkaline Phosphatase 58 U/L B-Type Natriuretic Peptide 932 PG/ML Total Protein 6.2 GM/DL Albumin 3.0 GM/DL Assessment and Plan Problem List: (1) Coronary artery disease Assessment and Plan: Recurrent angina this morning when upset with nursing staff, o/w stable overnight. Troponin levels suggestive of NSTEMI. Suspect he has had progression of disease in his vein graft to the RCA. For cath today. Continue heparin and Aggrastat drips, aspirin. (2) Hypertension Assessment and Plan: Mildly elevated BP's. Continue beta tavares, add JOVITA-I . (3) Paroxysmal atrial fibrillation Assessment and Plan: Remains in NSR. Unclear reason patient taken off anticoagulation therapy in the past. Will leave decision regarding anticoagulation to Dr. Olivo on outpatient f/u. Code Status full code Discussed Condition With patient Problem Qualifiers (1) Coronary artery disease: Qualified Code: I25.700 - Coronary artery disease involving coronary bypass graft of [place] heart with unstable angina pectoris (2) Hypertension: Qualified Code: I10 - Essential hypertension Herbert Gomez MD Nov 18, 2016 08:30
--- NOTE | 2016-11-18 08:40 | HHI.PR ---
Subjective Remarks Follow-up non-ST elevation MA/atypical chest pain/community acquired pneumonia 11/18/16-patient seen and examined, had episode of chest pain last night. Plan for heart catheterization per cardiology today. Currently afebrile. Objective Vitals Vital Signs Date Time Temp Pulse Resp B/P Pulse Ox O2 Delivery O2 Flow Rate FiO2 11/18/16 08:16 98 Nasal Cannula 2.00 11/18/16 07:43 98 Nasal Cannula 4.00 11/18/16 04:00 98.2 75 23 143/66 98 11/18/16 03:28 98 Nasal Cannula 4.00 11/18/16 01:26 98.0 78 16 137/63 97 11/18/16 01:00 84 11/18/16 00:29 88 95 11/18/16 00:00 97.3 76 18 150/70 94 11/17/16 20:00 97.5 86 18 154/67 98 11/17/16 16:10 94 11/17/16 15:55 97.7 89 20 126/60 97 11/17/16 12:08 97.3 108 20 128/71 99 11/17/16 10:47 98 18 121/63 100 Nasal Cannula 2 11/17/16 10:11 97 Nasal Cannula 2 11/17/16 10:05 105 18 116/67 97 Nasal Cannula 2 11/17/16 10:05 98 Nasal Cannula 2 11/17/16 10:01 105 18 116/67 98 Nasal Cannula 2 11/17/16 10:01 105 98 Nasal Cannula 2 I/O 11/17/16 11/17/16 11/17/16 11/18/16 11/18/16 11/18/16 07:00 15:00 23:00 07:00 15:00 23:00 Intake Total 240 ml 360 ml 154 ml Output Total 300 ml Balance 240 ml 360 ml -146 ml Intake Oral 240 ml 360 ml IV Total 154 ml Output Urine Total 300 ml # Voids 2 Result Diagram: 11/18/16 0550 11/18/16 0550 Imaging Last Impressions Chest X-Ray 11/17/16 0659 Signed Impressions: Service Date/Time: Thursday, November 17, 2016 07:23 - CONCLUSION: Bibasilar patchy opacities could be atelectasis or infiltrate. Mundo Henderson MD Objective Remarks GENERAL: NAD SKIN: Warm and dry. HEAD: Normocephalic. EYES: No scleral icterus. No injection or drainage. NECK: Supple, trachea midline. No JVD or lymphadenopathy. CARDIOVASCULAR: Regular rate and rhythm without murmurs, gallops, or rubs. RESPIRATORY: Breath sounds equal bilaterally. No accessory muscle use. GASTROINTESTINAL: Abdomen soft, non-tender, nondistended. MUSCULOSKELETAL: No cyanosis, or edema. BACK: Nontender without obvious deformity. No CVA tenderness. A/P Problem List: (1) Community acquired pneumonia ICD Code: J18.9 Status: Acute (2) Atypical chest pain ICD Code: R07.89 Status: Acute (3) Troponin level elevated ICD Code: R74.8 Status: Acute (4) Coronary artery disease ICD Code: I25.9 Status: Acute (5) Hyperlipidemia ICD Code: E78.5 Status: Acute (6) Hypertension ICD Code: I10 Status: Acute (7) Paroxysmal atrial fibrillation ICD Code: I48.0 Status: Acute (8) Non-ST elevation MA (NSTEMI) ICD Code: I21.4 Status: Acute Assessment and Plan 86-year-old male with 3-[id number]-vgricplh pneumonia: Status post azithromycin and Rocephin IV 1 in ED, continue with antibiotics and monitor culture. Chest x-ray with finding of opacity. Influenza A and B antigens negative . Monitor sputum culture 2-non-ST elevation MA /Atypical chest pain: Elevated cardiac enzyme, plan for left heart catheterization today 11/18/16. Continue with heparin drip, nitroglycerin, Coreg, aspirin, Vasotec, Lipitor. Check 2-D echo 3-History of CAD, paroxysmal A. fib : CABG in the , heart catheterization 06/13/14 with stenting of MONTANEZ to LAD. Cardiology to decide on oral anticoagulation 4-Hypertension: Continue Coreg, Vasotec and Norvasc 5-Hyperlipidemia: R on Lipitor 6-History of COPD: No current exacerbation, chest x-ray noted and reviewed. Continue with Symbicort, DuoNeb when necessary 7-DVT prophylaxis: Heparin drip Problem Qualifiers (1) Coronary artery disease: Qualified Code: I25.700 - Coronary artery disease involving coronary bypass graft of [place] heart with unstable angina pectoris (2) Hypertension: Qualified Code: I10 - Essential hypertension Mundo Molina MD Nov 18, 2016 08:40
[2016-11-18] MEDS: cefTRIAXone INJ 1,000 MG in SODIUM CHLORIDE 0.9% INJ 100 ML IV SCH (09:00)
[2016-11-18] MEDS: BUDESONIDE-FORMOTEROL 160/4.5 MCG INHALER INH SCH ×2 (09:00→21:00)
[2016-11-18] MEDS ORDERED: ENOXAPARIN SODIUM 40 MG/0.4 ML SYRINGE SQ SCH (09:00)
[2016-11-18] MEDS ORDERED: CARVEDILOL 12.5 MG TAB PO SCH (09:00)
[2016-11-18] MEDS: SODIUM CHLORIDE 0.9% FLUSH 5 ML FLUSH FLUSH SCH ×2 (09:00→22:44)
[2016-11-18] MEDS ORDERED: MORPHINE SULFATE 4 MG/ML INJ IV PUSH PRN (09:45)
[2016-11-18] MEDS: SODIUM CHLOR 0.9% 1000 ML INJ 1,000 ML IV SCH (10:04)
[2016-11-18] MEDS: CARVEDILOL 12.5 MG TAB PO SCH (10:05)
[2016-11-18] MEDS: ASPIRIN EC 81 MG TABEC PO SCH (10:05)
[2016-11-18] MEDS: PANTOPRAZOLE SOD 20 MG DELAYED RELEASE TAB PO SCH ×2 (10:05→22:44)
[2016-11-18] MEDS: ENALAPRIL MALEATE 5 MG TAB PO SCH (10:05)
[2016-11-18 13:46] LABS: APTT (PATIENT) 45.2 SEC (24.3-30.1)
--- NOTE | 2016-11-18 15:47 | EC ---
Study Study Date:11/18/2016 STUDY CONCLUSIONS SUMMARY - Left ventricle: The cavity size was normal. Systolic function was moderately reduced. The estimated ejection fraction was in the range of 35% to 40%. Akinesis of the mid-distal anteroseptal and anterior myocardium; consistent with infarction. - Aortic valve: Mild to moderate regurgitation. - Mitral valve: Severe regurgitation. - Pulmonary arteries: PA peak pressure: 67mm Hg (S). - Pericardium, extracardiac: There was a left pleural effusion. If LV function is below 40, please consider prescribing an ACEI or ARB or document rationale for non-use. PROCEDURE DATA STUDY STATUS: Elective. Procedure: Transthoracic echocardiography. Image quality was good. Scanning was performed from the parasternal, apical, and subcostal acoustic windows. Study completion: The patient tolerated the procedure well. Transthoracic echocardiography. M-mode, complete 2D, complete spectral Doppler, and color Doppler. Patient status: Inpatient. CARDIAC ANATOMY LEFT VENTRICLE: The cavity size was normal. Systolic function was moderately reduced. The estimated ejection fraction was in the range of 35% to 40%. Regional wall motion abnormalities: Akinesis of the mid-distal anteroseptal and anterior myocardium; consistent with infarction. AORTIC VALVE: The valve appears to be grossly normal. Doppler: There was no stenosis. Mild to moderate regurgitation. MITRAL VALVE: The valve appears to be grossly normal. Doppler: There was no evidence for stenosis. Severe regurgitation. Mean gradient: 1mm Hg (D). Peak gradient: 3mm Hg (D). RIGHT VENTRICLE: The cavity size was normal. PULMONIC VALVE: Not well visualized. TRICUSPID VALVE: The valve appears to be grossly normal. Doppler: There was no evidence for stenosis. Trace regurgitation. PERICARDIUM: There was no pericardial effusion. Pleura: There was a left pleural effusion. BASIC MEASUREMENTS ADULT Normal Left ventricle LV internal dimension, ED, chordal level, *42.2 mm 43-52 PLAX LV internal dimension, ES, chordal level, 37.3 mm 23-38 PLAX Fractional shortening, chordal level, PLAX *12 % >29 LV posterior wall thickness, ED 7.5 mm IVS/LVPW ratio, ED *1.49 <1.3 Ventricular septum Septal thickness, ED 11.2 mm Left atrium Anterior-posterior dimension 43 mm Right ventricle RV internal dimension, ED, PLAX 21 mm 19-38 DOPPLER MEASUREMENTS ADULT Normal Main pulmonary artery Pressure, S *67 mm Hg =30 Aortic valve VTI, S 35.2 cm Mitral valve Peak E-wave velocity 112 cm/s Peak A-wave velocity 32.7 cm/s Mean velocity, D 57.8 cm/s Mean gradient, D 1 mm Hg Peak gradient, D 3 mm Hg Peak E/A ratio 3.4 Maximal regurgitant velocity 506 cm/s Tricuspid valve Regurgitant peak velocity 362 cm/s Peak RV-RA gradient, S 52 mm Hg Maximal regurgitant velocity 362 cm/s Systemic veins Estimated CVP 15 mm Hg Right ventricle RV pressure, S *67 mm Hg <30 LEGEND: Mean values are shown as u=mean value. Asterisk (*) lorenzana values outside specified normal range. Prepared and signed by Parmjit Shin [id number]
[2016-11-18] MEDS ORDERED: ALPRAZolam 0.5 MG TAB PO PRN (17:00)
[2016-11-18] MEDS ORDERED: MIDAZOLAM HCL 2 MG/2 ML VIAL ONE ×2 (17:09→18:13)
[2016-11-18] MEDS ORDERED: HEPARIN-NS/PF INJ 500 ML ONE ×2 (17:09→18:09)
[2016-11-18] MEDS ORDERED: MIDAZOLAM HCL 2 MG/2 ML VIAL IV ONE ×2 (17:27→17:32)
[2016-11-18] MEDS ORDERED: NITROGLYCERIN 1000 MCG/5 ML VIAL I-CORONARY ONE (17:29)
[2016-11-18] MEDS ORDERED: IOHEXOL 350 MG/ML 50 ML BTL (for Cath Lab) OTHER ONE (18:00)
[2016-11-18] MEDS ORDERED: IOHEXOL 350 MG/ML 100 ML BTL (for Cath Lab) OTHER ONE (18:00)
[2016-11-18] MEDS ORDERED: HEPARIN SODIUM - IV 10,000 UNITS/10 ML VIAL ONE (18:04)
[2016-11-18] MEDS ORDERED: HEPARIN SODIUM - IV 10,000 UNITS/10 ML VIAL IV ONE (18:05)
[2016-11-18] MEDS ORDERED: TIROFIBAN INFUSION INJ 250 ML IV SCH (18:19)
[2016-11-18] MEDS ORDERED: SODIUM CHLOR 0.9% 1000 ML INJ 1,000 ML IV SCH (18:33)
[2016-11-18] MEDS ORDERED: FLUMAZENIL 0.5 MG/5 ML VIAL ONE (18:34)
[2016-11-18] MEDS ORDERED: FLUMAZENIL 0.5 MG/5 ML VIAL IV ONE (18:35)
[2016-11-18] MEDS ORDERED: FUROSEMIDE 40 MG/4 ML VIAL IV PUSH ONE (18:40)
[2016-11-18] MEDS ORDERED: FUROSEMIDE 40 MG/4 ML VIAL ONE (18:40)
[2016-11-18] MEDS ORDERED: ATROPINE SULFATE 1 MG/ML VIAL IV PRN (18:45)
[2016-11-18] MEDS ORDERED: MISC INFORMATION XX ONE (18:45)
[2016-11-18] MEDS ORDERED: SODIUM CHLOR 0.9% 250 ML INJ 250 ML IV PRN (18:45)
--- NOTE | 2016-11-18 19:26 | MA ---
cc: RENATA OLIVEIRA MD, GLENN H. M.D. DATE: 11/18/2016. PROCEDURE PERFORMED: Left heart catheterization, selective coronary and graft angiography, left ventriculography, unsuccessful angioplasty of the vein graft to the right coronary artery. PROCEDURE NOTE: The patient was brought to the cardiac catheterization laboratory in a fasting state after having signed informed consent. The right groin was prepped and draped as per policy and anesthetized with 1% lidocaine. Arterial access was obtained via the right femoral artery and a 6-Mauritanian sheath placed. Coronary arteriography was performed using 6-Mauritanian Manish left 4.0 and right progressive catheters. Left ventriculography was done using a standard 6-[place]auritanian pigtail. The vein graft to the right coronary was engaged with an RCB catheter. The vein graft to the obtuse marginal was engaged with an LCB catheter. The left internal mammary artery to the LAD was engaged with an MICHELLE catheter. Percutaneous graft intervention was done as described below. There were no apparent immediate complications. HEMODYNAMIC RESULTS: Left ventricle 135 with an end-diastolic pressure of 19. Aorta 131/55 with a mean of 83. There was no significant transvalvular aortic gradient on pullback of the pigtail catheter. CORONARY ARTERIOGRAPHY: The left main and proximal portions of the LAD and left circumflex are heavily calcified. There is diffuse left main disease which is somewhat difficult to quantify, likely at least 20% severity. The left anterior descending is totally occluded proximally. The left circumflex is totally occluded proximally. There is a relatively small ramus intermedius which has diffuse mild disease. The right coronary artery is a diffusely diseased dominant vessel which is totally occluded in its midportion. No definite collaterals are seen to the right coronary territory. GRAFT ANGIOGRAPHY: The vein graft to the obtuse marginal is widely patent. The vein graft to the right coronary artery is totally occluded very proximally. The left internal mammary artery to the LAD is widely patent. The mid to distal LAD has minimal to mild diffuse luminal irregularities. No definite collaterals are seen to the right coronary artery. LEFT VENTRICULOGRAPHY: Contrast injection of the left ventricle reveals global hypokinesis. Ejection fraction is roughly estimated at 35%. There is also at least moderate mitral regurgitation. PERCUTANEOUS GRAFT INTERVENTION DESCRIPTION: The patient was maintained on Aggrastat drip. Adequate heparin was given as well to achieve an ACT greater than 300 seconds. Using a 6-[place] progressive right guiding catheter, the ostium of the vein graft to the right coronary artery was re-engaged. We wired the total occlusion with a Prowater guidewire. We were unable to advance the Prowater past the midportion of the graft. We did attempt to inflate a 2.0-mm Euphora balloon catheter at the site of the total occlusion which did not reestablish any flow. We decided to achieve better backup support, and the guiding catheter was exchanged for an Amplatz left 1.0. The guidewire was also exchanged to a run-through wire. Similarly, we were able to cross the total occlusion but unable to advance the run-through wire past the midportion of the graft. A number of inflations were done along the mid to proximal portion of the graft using a 2.0-mm Euphora balloon catheter. Once again, these balloon inflations did not establish flow. It was decided to abort the case. CONCLUSIONS: 1. Severe three-vessel coronary artery disease. 2. Right dominant system. 3. Patent left internal mammary artery to the LAD and patent vein graft to the obtuse marginal. 4. Totally occluded vein graft to the right coronary artery with unsuccessful revascularization of this graft despite a number of balloon inflations in the occluded proximal portion. 5. Severely reduced left ventricular systolic function with estimated ejection fraction of 35%. 6. At least moderate mitral regurgitation some of which may have been catheter-induced. MD ANTON Love/KRANTHI /6:28 PM /7:14 PM JOSEFINA
[2016-11-18 19:54] LABS: BLOOD GAS BASE EXCESS -6.7 mmol/L (-2-2); BLOOD GAS CARBOXYHEMOGLOBIN 0.7 % (0-4); BLOOD GAS HCO3 22 mmol/L (22-26); BLOOD GAS METHEMOGLOBIN 1.1 % (0-2); BLOOD GAS O2 HGB SATURATION 96 % (90-100); BLOOD GAS OXYGEN CONTENT 15.2 Vol % (12.0-20.0); BLOOD GAS PCO2 71 mmHg (38-42); BLOOD GAS PO2 167 mmHg (61-120); BLOOD GAS TOTAL HGB 10.9 G/DL (12.0-16.0); TEMP CORR TO 98.6
[2016-11-18 19:55] LABS: CRITICAL VALUE YES; DRAW SITE RT BRACHIAL; FIO2 100 %; LITER FLOW 15 L/M; NUMBER OF ARTERIAL PUNCTURES 1; STAT NO
[2016-11-18] MEDS ORDERED: MIDAZOLAM HCL 5 MG/ML VIAL (1 ML) ONE (20:07)
[2016-11-18] MEDS ORDERED: PROPOFOL 1000 MG/100 ML INJ 100 ML ONE (20:08)
--- NOTE | 2016-11-18 20:14 | RADRPT ---
EXAM DATE/TIME: 11/18/2016 19:54 [facility] COMPARISON: CHEST SINGLE AP, November 17, 2016, 7:23. INDICATIONS : Short of breath. MEDICAL HISTORY : None. SURGICAL HISTORY : CABG. ENCOUNTER: Initial ACUITY: 1 day PAIN SCORE: Non-responsive. LOCATION: Bilateral chest FINDINGS: Again noted is evidence of prior median sternotomy cardiac surgery. Bibasilar densities persist possi ble consolidation in the left base and probable effusion in the right lung base with prominent pulmon porter vascular perivascular interstitium suggesting CHF. CONCLUSION: Vascular findings suggesting CHF. Bibasilar opacities persist consolidated possibly in the left lower lobe and in the right lung base some degree of effusion. Riley Gaffney MD on November 18, 2016 at 20:11 Board Certified Radiologist. This report was verified electronically.
--- NOTE | 2016-11-18 20:44 | PD.CONS ---
HPI Service Critical Care Medicine Consult Requested By Primary Care Physician Jay Chávez MD Review of Systems ROS Unable to obtain patient is in respiratory distress Past Family Social History Allergies: Coded Allergies: No Known Allergies (Unverified , 11/17/16) Past Medical History CAD, [place], CABG Asthma Hyperlipidemia BPH Past Surgical History Cholecystectomy Coronary Artery Bypass Graft (X 3 VESSELS) Bilateral knees repair Reported Medications Reported Meds & Active Scripts Active Reported Tramadol (Tramadol HCl) 50 Mg Tab 50 Mg PO BID PRN Omeprazole 20 Mg Tab 20 Mg PO BID Gabapentin 400 Mg Cap 400 Cap PO HS Coreg (Carvedilol) 12.5 Mg Tab 12.5 Mg PO DAILY Symbicort Inh (Budesonide/Formoterol Fumarate) 160-4.5 Mcg/Act Aero 2 Puff INH BID Atorvastatin (Atorvastatin Calcium) 80 Mg Tab 40 Mg PO HS Amlodipine (Amlodipine Besylate) 10 Mg Tab 10 Mg PO DAILY Combivent Respimat Inh (Ipratropium-Albuterol Inh) 20-100 Senior Living/Act Aero 1 Puff INH QID Active Ordered Medications Current Medications Medications (Trade) Dose Ordered Sig/Octavia Route PRN Reason Start Time Stop Time Status Last Admin Dose Admin IV Flush (NS Flush) 2 ml UNSCH PRN FLUSH FLUSH AFTER USING IV ACCESS 11/17/16 08:45 IV Flush (NS Flush) 2 ml BID FLUSH 11/17/16 09:00 11/17/16 20:59 Acetaminophen (Tylenol) 650 mg Q4H PRN PO TEMP > 100.4 11/17/16 08:45 Ondansetron HCl (Zofran Inj) 4 mg Q6H PRN IVP NAUSEA OR VOMITING 11/17/16 08:45 Temazepam (Restoril) 15 mg HS PRN PO INSOMNIA 11/17/16 08:45 11/17/16 20:57 Acetaminophen (Tylenol) 650 mg Q6H PRN PO PAIN SCALE 1 TO 2 11/17/16 08:45 11/17/16 20:59 Naloxone HCl (Narcan Inj) 0.4 mg UNSCH PRN IV SEE LABEL COMMENTS 11/17/16 08:45 Amlodipine Besylate (Norvasc) 10 mg DAILY PO 11/18/16 09:00 11/18/16 10:06 Atorvastatin Calcium (Lipitor) 40 mg HS PO 11/17/16 21:00 11/17/16 20:58 Budesonide/ Formoterol Fumarate (Symbicort 160-4.5 Inh) 2 puff BID INH 11/17/16 21:00 11/17/16 20:58 Gabapentin (Neurontin) 400 mg HS PO 11/17/16 21:00 11/17/16 20:57 Pantoprazole Sodium 20 mg 20 mg BID PO 11/17/16 21:00 11/18/16 10:05 Ceftriaxone Sodium 1000 mg/ Sodium Chloride 100 ml @ 200 mls/hr Q24H IV 11/18/16 09:00 11/18/16 09:00 Azithromycin/ Sodium Chloride (Zithromax Inj/ NS 250 ml Inj) 250 ml @ 250 mls/hr Q24H IV 11/18/16 14:00 Nitroglycerin (Nitrostat Sl) 0.4 mg Q5M PRN SL CHEST PAIN 11/17/16 12:15 11/18/16 01:57 Aspirin 81 mg 81 mg DAILY PO 11/18/16 09:00 11/18/16 10:05 Sodium Chloride 1,000 ml @ 100 mls/hr Q10H IV 11/18/16 09:00 11/23/16 08:59 11/18/16 10:04 Tirofiban/Sodium Chloride (Aggrastat Infusion Inj) 250 ml @ 15.894 mls/ hr [id number] IV 11/17/16 23:20 11/18/16 16:51 Miscellaneous Information Patient in critical care unit? Ass... [id number] 11/18/16 01:45 Chlorhexidine Gluconate (Chlorhexidine 2% Cloth) 3 pack DAILY@04 TOP 11/18/16 04:00 11/22/16 04:01 11/18/16 04:00 Chlorhexidine Gluconate (Chlorhexidine 2% Cloth) 3 pack UNSCH PRN TOP HYGIENIC CARE 11/18/16 01:45 11/23/16 01:34 Carvedilol (Coreg) 25 mg DAILY PO 11/18/16 09:00 11/18/16 10:05 Enalapril Maleate (Vasotec) 5 mg DAILY PO 11/18/16 09:00 11/18/16 10:05 Alprazolam (Xanax) 0.5 mg Q8H PRN PO anxiety 11/18/16 17:00 11/18/16 16:10 Morphine Sulfate (Morphine Inj) 4 mg Q3H PRN IV PUSH pain>2 11/18/16 09:45 11/18/16 10:42 Atropine Sulfate (Atropine Inj) 0.5 mg UNSCH PRN IV VAGAL REPONSE 11/18/16 18:45 Isosorbide Mononitrate 60 mg 60 mg DAILY@07 PO 11/19/16 07:00 Propofol (Diprivan 1000 Mg/100ml Inj) 100 ml @ 0 mls/hr TITRATE IV 11/18/16 20:45 Family History Noncontributory Social History Negative Physical Exam Vital Signs Vital Signs Date Time Temp Pulse Resp B/P Pulse Ox O2 Delivery O2 Flow Rate FiO2 11/18/16 19:24 84 Nasal Cannula 6.00 11/18/16 16:00 98.6 80 20 144/65 94 11/18/16 12:00 98.2 79 20 147/67 96 11/18/16 08:16 98 Nasal Cannula 2.00 11/18/16 08:00 98.2 94 16 124/74 96 11/18/16 07:43 98 Nasal Cannula 4.00 11/18/16 04:00 98.2 75 23 143/66 98 11/18/16 03:28 98 Nasal Cannula 4.00 11/18/16 01:26 98.0 78 16 137/63 97 11/18/16 01:00 84 11/18/16 00:29 88 95 11/18/16 00:00 97.3 76 18 150/70 94 Physical Exam GENERAL: Elderly well-developed patient in respiratory distress SKIN: Warm and dry. HEAD: Normocephalic. EYES: No scleral icterus. No injection or drainage. NECK: Supple, trachea midline. No JVD or lymphadenopathy. CARDIOVASCULAR: Regular rate and rhythm without murmurs, gallops, or rubs. RESPIRATORY: Breath sounds equal bilaterally. No accessory muscle use. GASTROINTESTINAL: Abdomen soft, non-tender, nondistended. MUSCULOSKELETAL: No cyanosis, or edema. BACK: Nontender without obvious deformity. No CVA tenderness. Laboratory Laboratory Tests Test 11/18/16 11/18/16 11/18/16 11/18/16 00:27 01:28 05:50 07:10 White Blood Count 5.3 5.9 Red Blood Count 3.27 2.83 Hemoglobin 10.7 9.1 Hematocrit 30.8 26.5 Mean Corpuscular Volume 94.1 93.7 Mean Corpuscular Hemoglobin 32.6 32.2 Mean Corpuscular Hemoglobin 34.6 34.4 Concent Red Cell Distribution Width 14.9 14.6 Platelet Count 169 152 Mean Platelet Volume 8.8 9.0 Neutrophils (%) (Auto) 89.1 89.1 Lymphocytes (%) (Auto) 9.2 8.1 Monocytes (%) (Auto) 1.7 2.7 Eosinophils (%) (Auto) 0.0 0.0 Basophils (%) (Auto) 0.0 0.1 Neutrophils # (Auto) 4.8 5.2 Lymphocytes # (Auto) 0.5 0.5 Monocytes # (Auto) 0.1 0.2 Eosinophils # (Auto) 0.0 0.0 Basophils # (Auto) 0.0 0.0 CBC Comment DIFF FINAL DIFF FINAL Differential Comment Prothrombin Time 10.8 Prothromb Time International 1.0 Ratio Activated Partial 33.4 106.3 45.2 Thromboplast Time Nasal Screen MRSA (PCR) NEGATIVE Sodium Level 139 Potassium Level 4.2 Chloride Level 107 Carbon Dioxide Level 22.8 Anion Gap 9 Blood Urea Nitrogen 19 Creatinine 1.02 Estimat Glomerular Filtration 69 Rate Random Glucose 145 Calcium Level 8.6 Total Bilirubin 0.6 Aspartate Amino Transf 16 (AST/SGOT) Alanine Aminotransferase 13 (ALT/SGPT) Alkaline Phosphatase 58 B-Type Natriuretic Peptide 932 Total Protein 6.2 Albumin 3.0 Test 11/18/16 19:45 Blood Gas Puncture Site RT BRACHIAL Blood Gas Patient Temperature 98.6 Blood Gas HCO3 22 Blood Gas Base Excess -6.7 Blood Gas Oxygen Saturation 96 Arterial Blood pH 7.11 Arterial Blood Partial 71 Pressure CO2 Arterial Blood Partial 167 Pressure O2 Arterial Blood Oxygen Content 15.2 Arterial Blood 0.7 Carboxyhemoglobin Arterial Blood Methemoglobin 1.1 Blood Gas Hemoglobin 10.9 Oxygen Delivery Device Non-Rebreathing Mask Blood Gas Liter Flow 15 Blood Gas Inspired Oxygen 100 Date/Time Procedure Status Source Growth 11/17/16 07:45 Influenza Types A,B Antigen (RADHA) - Final Complete Nasal Washing NEGATIVE FOR FLU A AND B ANTIGEN.... Result Diagram: 11/18/16 0550 11/18/16 0550 Imaging Last 24 hours Impressions Chest X-Ray 11/18/16 0000 Signed Impressions: Service Date/Time: October 19:54 - CONCLUSION: Vascular findings suggesting CHF. Bibasilar opacities persist consolidated possibly in the left lower lobe and in the right lung base some degree of effusion. Riley Gaffney MD Assessment and Plan Problem List: (1) Coronary artery disease ICD Code: I25.9 Status: Acute (2) Hyperlipidemia ICD Code: E78.5 Status: Acute (3) Hypertension ICD Code: I10 Status: Acute (4) Troponin level elevated ICD Code: R74.8 Status: Acute (5) Non-ST elevation [place] (NSTEMI) ICD Code: I21.4 Status: Acute Assessment and Plan Respiratory failure - Patient would not tolerate BiPAP due to altered mental status - Required intubation - Continue mechanical ventilation - Possible right pleural effusion - Consider CT Coronary artery disease - Status post cardiac catheterization - Aspirin statins Brilinta - Coreg - Further per cardiology Dr. Londono CHF - Isosorbide - Enalapril - Coreg Peripheral neuropathy - Gabapentin Community-acquired pneumonia - Zithromax and Rocephin DVT GI prophylaxis - Protonix heparin Critical Care: The total critical care time was 35 minutes. Time to perform other separately billable procedures was not included in the critical care time. Problem Qualifiers (1) Coronary artery disease: Qualified Code: I25.700 - Coronary artery disease involving coronary bypass graft of [place] heart with unstable angina pectoris (2) Hypertension: Qualified Code: I10 - Essential hypertension Carlos Gilman MD Nov 18, 2016 20:43
--- NOTE | 2016-11-18 21:34 | PD.PROCEDR ---
Procedure Note Procedure IJ Central line A time-out was completed verifying correct patient, procedure, site, positioning , and special equipment if applicable. The patient was placed in a dependent position appropriate for central line placement based on the vein to be cannulated. The patients right neck was prepped and draped in sterile fashion. 1% Lidocaine was used to anesthetize the surrounding skin area. A triple lumen < 9-Kyrgyz> Cordis catheter was introduced into the the internal jugular vein> using the Seldinger technique <and under ultrasound guidance>. The catheter was threaded smoothly over the guide wire and appropriate blood return was obtained. Each lumen of the catheter was evacuated of air and flushed with sterile saline. The catheter was then sutured in place to the skin and a sterile dressing applied. Perfusion to the extremity distal to the point of catheter insertion was checked and found to be adequate. Estimated Blood Loss: <1> The patient tolerated the procedure well and there were no complications. Carlos Gilman MD Nov 18, 2016 21:34
[2016-11-18] MEDS: ATORVASTATIN 40 MG TAB PO SCH (22:44)
[2016-11-18] MEDS: GABAPENTIN 400 MG CAP PO SCH (22:44)
[2016-11-18 22:55] LABS: BLOOD GAS BASE EXCESS -2.4 mmol/L (-2-2); BLOOD GAS CARBOXYHEMOGLOBIN 1.3 % (0-4); BLOOD GAS HCO3 22 mmol/L (22-26); BLOOD GAS O2 HGB SATURATION 98 % (90-100); BLOOD GAS OXYGEN CONTENT 13.5 Vol % (12.0-20.0); BLOOD GAS PCO2 38 mmHg (38-42); BLOOD GAS PO2 341 mmHg (61-120); BLOOD GAS TOTAL HGB 9.2 G/DL (12.0-16.0); CRITICAL VALUE NO; OXYGEN DEVICE VENTILATOR; TEMP CORR TO 98.6
[2016-11-18 22:56] LABS: DRAW SITE RT BRACHIAL; FIO2 100 %; NUMBER OF ARTERIAL PUNCTURES 1; STAT NO; VENT SETTINGS PRVC-AC
--- NOTE | 2016-11-18 23:00 | HHI.PR ---
Addendum to Inpatient Note Addendum Reason: Additional Documentation Additional Information At 1945, I was notified by bedside nurse that the patient had just come back from cardiac catheterization and was extremely short of breath and then developed altered mental status and was not responding to vocal commands. His oxygen saturation was 84% on 6 liters oxygen via nasal cannula; other vitals were stable. I placed an order for a stat chest x-ray and ABGs and went to the bedside to evaluate the patient. He did not follow commands though his eyes are open and he is not focusing on anyone in the room, just staring at ceiling. He does not answer any of my questions. He is tachypneic, using accessory muscles to breathe, and his color is ashen. He appears in respiratory distress. Oxygen saturation is now 100% on nonrebreather. I placed a call immediately to Dr. Gilman, yield loss inspector with a STAT yield loss inspector consult. Xray and ABGs had not resulted but the patient appeared to be in acute respiratory failure and likely would require intubation given AMS. Dr. Gilman came to the bedside in time for ABG results and CXR and decided to intubate the patient. Dr. Gilman is assuming care of Mr. Levi. . Jody Miranda Nov 18, 2016 23:00
--- NOTE | 2016-11-18 23:55 | PD.PROCEDR ---
Procedure Note Procedure Endotracheal Intubation A time-out was completed verifying correct patient, procedure, site, positioning , and special equipment if applicable. The patient was placed in a flat position. Sedation was obtained using <Versed 3mg>, and additionally with fentanyl 100 g. The patient was easily ventilated using an ambu bag. The < [employer]/ MAC 3 BLADE> was used and inserted into the oropharynx at which time there was a Grade 1 view of the vocal cords. A 7.5-georgian endotracheal tube was inserted and visualized going through the vocal cords. The stylette was removed. Colorimetric change was visualized on the CO2 meter. Breath sounds were heard in both lung seo equally. The endotracheal tube was placed at 23 cm, measured at the teeth. A chest x-ray was ordered to assess for pneumothorax and verify endotrachealtube placement. Carlos Gilman MD Nov 18, 2016 23:55
[2016-11-19] VITALS (11 sets, daily range): BP systolic 132–138; BP diastolic 54–89; PULSE 56–98; RESP 16–22; TEMP 98–98.5; O2SAT 96–100
[2016-11-19] MEDS: PROPOFOL 1000 MG/100 ML INJ 100 ML IV SCH ×5 (02:01→18:59)
[2016-11-19] MEDS: SODIUM CHLOR 0.9% 1000 ML INJ 1,000 ML IV SCH ×4 (02:01→22:56)
[2016-11-19 05:55] LABS: BICARBONATE 25.2 MEQ/L (21.0-32.0); POTASSIUM 4.1 MEQ/L (3.5-5.1)
[2016-11-19] MEDS: ISOSORBIDE MONONITRATE 60 MG TAB PO SCH (07:00)
--- NOTE | 2016-11-19 08:36 | PD.CARD.PN ---
Subjective Subjective Remarks Intubated. Sedated. Objective Medications Item Value Date Time Isosorbide 60 mg 11/19/16 0700 Mononitrate DAILY@07/PO (Imdur) Amlodipine 10 mg 11/18/16 0900 Besylate DAILY/PO 11/18/16 1006 (Norvasc) Aspirin 81 mg 11/18/16 0900 (Ecotrin Ec) DAILY/PO 11/18/16 1005 Carvedilol 25 mg 11/18/16 0900 (Coreg) DAILY/PO 11/18/16 1005 Enalapril Maleate 5 mg 11/18/16 0900 (Vasotec) DAILY/PO 11/18/16 1005 Atorvastatin 40 mg 11/17/16 2100 Calcium HS/PO 11/18/16 2244 (Lipitor) Vital Signs / I&O Vital Signs Date Time Temp Pulse Resp B/P Pulse Ox O2 Delivery O2 Flow Rate FiO2 11/19/16 07:52 97 30 11/19/16 04:02 100 35 11/19/16 04:00 98.4 58 18 136/54 98 11/19/16 00:00 98.0 58 18 135/60 100 11/18/16 22:20 97.6 96 20 115/71 97 11/18/16 21:21 97.5 60 18 101/50 100 11/18/16 21:00 97.0 65 18 80/42 100 11/18/16 20:45 97.0 57 18 107/58 100 11/18/16 20:42 100 100 11/18/16 20:00 97.0 87 34 112/60 87 11/18/16 20:00 97.0 87 34 112/60 100 11/18/16 19:24 84 Nasal Cannula 6.00 11/18/16 16:00 98.6 80 20 144/65 94 11/18/16 12:00 98.2 79 20 147/67 96 I/O 11/18/16 11/18/16 11/18/16 11/19/16 11/19/16 11/19/16 07:00 15:00 23:00 07:00 15:00 23:00 Intake Total 154 ml 270 ml 805 ml 345 ml Output Total 300 ml 500 ml 1250 ml 250 ml Balance -146 ml -230 ml -445 ml 95 ml IV Total 154 ml 270 ml 805 ml 345 ml Output Urine Total 300 ml 500 ml 1250 ml 250 ml Stool Total 0 ml 0 ml # Voids 3 Physical Exam GENERAL: Well developed, well nourished. Intubated. Sedated. HEENT: Jugular venous pressure is normal. CHEST: Lungs clear to auscultation anteriorly. CARDIAC: Regular rate and rhythm without S3, S4, or murmur. ABDOMEN: Soft, nontender, no hepatosplenomegaly. Bowel sounds present. EXTREMITIES: No clubbing, cyanosis, or edema. Right groin stable. No hematoma. Laboratory Laboratory Tests Test 11/18/16 11/18/16 11/19/16 19:45 22:45 04:15 Blood Gas Puncture Site RT BRACHIAL RT BRACHIAL Blood Gas Patient Temperature 98.6 98.6 Blood Gas HCO3 22 mmol/L 22 mmol/L Blood Gas Base Excess -6.7 mmol/L -2.4 mmol/L Blood Gas Oxygen Saturation 96 % 98 % Arterial Blood pH 7.11 7.38 Arterial Blood Partial 71 mmHg 38 mmHg Pressure CO2 Arterial Blood Partial 167 mmHg 341 mmHg Pressure O2 Arterial Blood Oxygen Content 15.2 Vol % 13.5 Vol % Arterial Blood 0.7 % 1.3 % Carboxyhemoglobin Arterial Blood Methemoglobin 1.1 % 1.0 % Blood Gas Hemoglobin 10.9 G/DL 9.2 G/DL Oxygen Delivery Device Non-Rebreathing VENTILATOR Mask Blood Gas Liter Flow 15 L/M Blood Gas Inspired Oxygen 100 % 100 % Blood Gas Ventilator Setting PRVC-AC Sodium Level 141 MEQ/L Potassium Level 4.1 MEQ/L Chloride Level 108 MEQ/L Carbon Dioxide Level 25.2 MEQ/L Anion Gap 8 MEQ/L Blood Urea Nitrogen 25 MG/DL Creatinine 0.98 MG/DL Estimat Glomerular Filtration 73 ML/MIN Rate Random Glucose 90 MG/DL Calcium Level 8.3 MG/DL Assessment and Plan Problem List: (1) Coronary artery disease Assessment and Plan: Cath findings as reported, severe 3 vessel [place] CAD, patent MONTANEZ to LAD, patent SV to OM, occluded SV to RCA (new compared to 2013), s/p unsuccessful revascularization of this graft. Rec medical therapy. Continue oral nitrate, calcium channel and beta blockers, aspirin. (2) Ischemic cardiomyopathy Assessment and Plan: EF somewhat difficult to estimate on left ventriculogram yesterday, possibly around 35%, with possibly severe MR. Findings similar on echo. Suspect respiratory failure mainly due to CHF. REC continue JOVITA-I, beta tavares diuresis consider MVR in the future especially if he has recurrent episodes of CHF (3) Hypertension Assessment and Plan: Mildly hypotensive last night, now normotensive. Continue to monitor. (4) Paroxysmal atrial fibrillation Assessment and Plan: Remains in NSR. Unclear reason patient taken off anticoagulation therapy in the past. Will leave decision regarding anticoagulation to Dr. Olivo on outpatient f/u. Code Status full code Problem Qualifiers (1) Coronary artery disease: Qualified Code: I25.700 - Coronary artery disease involving coronary bypass graft of [place] heart with unstable angina pectoris (2) Hypertension: Qualified Code: I10 - Essential hypertension Herbert Gomez MD Nov 19, 2016 08:36
[2016-11-19] MEDS ORDERED: FUROSEMIDE 40 MG/4 ML VIAL IV PUSH SCH (09:00)
[2016-11-19] MEDS: PANTOPRAZOLE SOD 20 MG DELAYED RELEASE TAB PO SCH ×2 (09:00→22:55)
[2016-11-19] MEDS: ASPIRIN EC 81 MG TABEC PO SCH (09:00)
[2016-11-19] MEDS: BUDESONIDE-FORMOTEROL 160/4.5 MCG INHALER INH SCH ×2 (09:00→21:00)
[2016-11-19] MEDS: SODIUM CHLORIDE 0.9% FLUSH 5 ML FLUSH FLUSH SCH ×2 (09:00→22:55)
[2016-11-19] MEDS: ENALAPRIL MALEATE 5 MG TAB PO SCH (09:00)
[2016-11-19] MEDS: CARVEDILOL 12.5 MG TAB PO SCH (09:00)
--- NOTE | 2016-11-19 09:15 | RADRPT ---
EXAM DATE/TIME: 11/18/2016 20:48 [facility] COMPARISON: CHEST SINGLE AP, November 18, 2016, 19:54. INDICATIONS : Evaluate intubation MEDICAL HISTORY : None. SURGICAL HISTORY : CABG. ENCOUNTER: Subsequent ACUITY: 1 day PAIN SCORE: Non-responsive. LOCATION: Bilateral chest FINDINGS: Placement of an ET tube which terminates just above the jean [place] and right jugular catheter terminating in superior vena cava with no evidence of pneumothorax. Cardiopulmonary status is unchanged. CONCLUSION: ET tube above the jean paul. Right jugular catheter terminates in superior vena cava otherwise stable ch est Riley Gaffney MD on November 18, 2016 at 21:07 Board Certified Radiologist. This report was verified electronically.
[2016-11-19] MEDS: cefTRIAXone INJ 1,000 MG in SODIUM CHLORIDE 0.9% INJ 100 ML IV SCH (12:33)
--- NOTE | 2016-11-19 13:28 | HHI.CCPN ---
Subjective Remarks/Hospital Course Patient is an 86-year-old male admitted to hospitalist service on 11/17 with community-acquired pneumonia, NSTEMI. CCM consulted on 11/18/16 evening for acute respiratory failure. Patient underwent cardiac catheterization . Post cardiac catheterization and was extremely short of breath and then developed altered mental status and was unresponsive and hypoxemic. Stat chest x-ray showed pulmonary edema. Patient was tachypneic, using accessory muscles to breathe, and he was cyanotic. Patient was emergently intubated and placed on mechanical ventilation by Dr. Gilman. Cath findings-severe 3 vessel [place] CAD , patent MONTANEZ to LAD, patent SV to OM, occluded SV to RCA (new compared to 2013) , s/p unsuccessful revascularization of this graft. Dr. Gomez recommended medical therapy. Left ventriculogram EF possibly around 35%, with possibly severe MR. SUBJ: 11/19: Remains intubated sedated with propofol. Urine output 2 L in 24 hours. Receiving Lasix 40 mg daily I'll increase to 40 every 8 hours. 2-D echo sev MR, EF 35-40%. Akinesis of mid distal anterior septum and anterior myocardium. Objective Vital Signs Date Time Temp Pulse Resp B/P Pulse Ox O2 Delivery O2 Flow Rate FiO2 11/19/16 07:52 97 30 11/19/16 04:00 98.4 58 18 136/54 11/18/16 19:24 Nasal Cannula 6.00 Intake and Output 11/18/16 11/18/16 11/19/16 08:00 16:00 00:00 Intake Total 154 ml 270 ml 805 ml Output Total 300 ml 500 ml 1250 ml Balance -146 ml -230 ml -445 ml Result Diagram: 11/18/16 0550 11/19/16 0415 Other Results Microbiology Date/Time Procedure Status Source Growth 11/17/16 07:45 Influenza Types A,B Antigen (RADHA) - Final Complete Nasal Washing NEGATIVE FOR FLU A AND B ANTIGEN.... Laboratory Tests Test 11/18/16 11/18/16 19:45 22:45 Blood Gas Puncture Site RT BRACHIAL RT BRACHIAL Blood Gas Patient Temperature 98.6 98.6 Blood Gas HCO3 22 mmol/L 22 mmol/L (22-26) (22-26) Blood Gas Base Excess -6.7 mmol/L -2.4 mmol/L (-2-2) (-2-2) Blood Gas Oxygen Saturation 96 % (90-100) 98 % (90-100) Arterial Blood pH 7.11 7.38 (7.380-7.420) (7.380-7.420) Arterial Blood Partial 71 mmHg (38-42) 38 mmHg (38-42) Pressure CO2 Arterial Blood Partial 167 mmHg 341 mmHg Pressure O2 (61-120) (61-120) Arterial Blood Oxygen Content 15.2 Vol % 13.5 Vol % (12.0-20.0) (12.0-20.0) Arterial Blood 0.7 % (0-4) 1.3 % (0-4) Carboxyhemoglobin Arterial Blood Methemoglobin 1.1 % (0-2) 1.0 % (0-2) Blood Gas Hemoglobin 10.9 G/DL 9.2 G/DL (12.0-16.0) (12.0-16.0) Oxygen Delivery Device Non-Rebreathing VENTILATOR Mask Blood Gas Liter Flow 15 L/M Blood Gas Inspired Oxygen 100 % 100 % Blood Gas Ventilator Setting [facility] Imaging Last 24 hours Impressions Chest X-Ray 11/18/16 0000 Signed Impressions: Service Date/Time: October 19:54 - CONCLUSION: Vascular findings suggesting CHF. Bibasilar opacities persist consolidated possibly in the left lower lobe and in the right lung base some degree of effusion. Riley Gaffney MD Objective Remarks GENERAL: Elderly well-developed patient in intubated sedated SKIN: Warm and dry. HEAD: Normocephalic. EYES: No scleral icterus. No injection or drainage. NECK: Supple, trachea midline. No JVD or lymphadenopathy. CARDIOVASCULAR: Regular rate and rhythm systolic murmur predominantly at the expected RESPIRATORY: Breath sounds equal bilaterally, with basilar crackles. No accessory muscle use. GASTROINTESTINAL: Abdomen soft, non-tender, nondistended. MUSCULOSKELETAL: No cyanosis, or edema. BACK: Nontender without obvious deformity. No CVA tenderness. NEURO: On sedation hold, do not open eyes, thrashes head side to side, moves bilateral UE. Do not follow commands Urinary Catheter: Yes A/P Problem List: (1) Non-ST elevation [place] (NSTEMI) ICD Code: I21.4 Status: Acute (2) Coronary artery disease ICD Code: I25.9 Status: Acute (3) Hyperlipidemia ICD Code: E78.5 Status: Acute (4) Hypertension ICD Code: I10 Status: Acute (5) Troponin level elevated ICD Code: R74.8 Status: Acute (6) Ischemic cardiomyopathy ICD Code: I25.5 Status: Acute (7) Community acquired pneumonia ICD Code: J18.9 Status: Acute Assessment and Plan Neuro: - Propofol for sedation. Gets agitated on sedation hold - Start daily sedation vacation - Peripheral neuropathy- Gabapentin RESP: Acute hypoxemic respiratory failure Pulmonary edema - Patient would not tolerate BiPAP and was intubated to 13/12/16 - Continue mechanical ventilation - Has right pleural effusion-plan for bedside US today CVS: NSTEMI Acute on chronic systolic heart failure Ischemic cardiac myopathy Severe mitral regurgitation Coronary artery disease - Status post cardiac catheterization Cath findings-severe 3 vessel [place] CAD, patent MONTANEZ to LAD, patent SV to OM, occluded SV to RCA (new compared to 2013) - s/p unsuccessful revascularization of this graft. Dr. Gomez recommended medical therapy. - Aspirin statins Brilinta Coreg - Further per cardiology - IV Lasix 40 mg daily increased to every 8 hours with potassium replacement - Hold lisinopril at this time due to aggressive diuresis GI: - Start tube feeds with Jevity. IV Protonix for GI prophylaxis : - IV Lasix 40 mg every 8 hours with potassium replacement ID: Community-acquired pneumonia - Zithromax and Rocephin Endo: - Electrolyte replacement per protocol DVT GI prophylaxis - Protonix heparin Critical Care: The total critical care time was 35 minutes. Time to perform other separately billable procedures was not included in the critical care time. Updated daughter at the bedside. Prognosis guarded given ischemic cardio myopathy with severe MR Problem Qualifiers (1) Coronary artery disease: Qualified Code: I25.700 - Coronary artery disease involving coronary bypass graft of [place] heart with unstable angina pectoris (2) Hypertension: Qualified Code: I10 - Essential hypertension Alejandro Graham MD Nov 19, 2016 13:28
[2016-11-19] MEDS ORDERED: POTASSIUM PHOSPHATE INJ 30 MMOL in SODIUM CHLOR 0.9% 250 ML INJ 250 ML IV PRN (13:45)
[2016-11-19] MEDS ORDERED: MAGNESIUM OXIDE 400 MG TAB PO PRN (13:45)
[2016-11-19] MEDS ORDERED: MAGNESIUM SULFATE INJ 2 GM in SODIUM CHLORIDE 0.9% INJ 96 ML IV PRN (13:45)
[2016-11-19] MEDS ORDERED: MAGNESIUM SULFATE INJ 4 GM in SODIUM CHLORIDE 0.9% INJ 92 ML IV PRN (13:45)
[2016-11-19] MEDS ORDERED: POTASSIUM PHOSPHATE MONOBASIC 500 MG TAB PO PRN (13:45)
[2016-11-19] MEDS ORDERED: SODIUM PHOSPHATE INJ 30 MMOL in SODIUM CHLOR 0.9% 250 ML INJ 240 ML IV PRN (13:45)
[2016-11-19] MEDS ORDERED: POTASSIUM CHLOR 40 MEQ PREMIX 100 ML IV PRN ×2 (13:45)
[2016-11-19] MEDS ORDERED: POTASSIUM PHOSPHATE MONOBASIC 500 MG TAB PO/TUBE PRN (13:45)
[2016-11-19] MEDS ORDERED: POTASSIUM CL 40 MEQ/30 ML LIQ UDC PO/TUBE PRN ×2 (13:45)
[2016-11-19] MEDS ORDERED: POTASSIUM CHLOR 20 MEQ PREMIX 100 ML IV PRN ×2 (13:45)
[2016-11-19] MEDS: FUROSEMIDE 40 MG/4 ML VIAL IV PUSH SCH (16:17)
[2016-11-19] MEDS: AZITHROMYCIN INJ 500 MG in SODIUM CHLOR 0.9% 250 ML INJ 250 ML IV SCH (17:23)
[2016-11-19] MEDS: POTASSIUM CL 40 MEQ/30 ML LIQ UDC NG SCH (17:23)
[2016-11-19] MEDS: ATORVASTATIN 40 MG TAB PO SCH (22:55)
[2016-11-19] MEDS: GABAPENTIN 400 MG CAP PO SCH (22:55)
[2016-11-20] VITALS (13 sets, daily range): BP systolic 118–156; BP diastolic 57–73; PULSE 56–73; RESP 16–22; TEMP 97.4–98.4; O2SAT 97–100
[2016-11-20] MEDS: CHLORHEXIDINE GLUCONATE 2 % 1 PACK (2 CLOTHS)(taper/protocol) TOP SCH (03:31)
[2016-11-20] MEDS: FUROSEMIDE 40 MG/4 ML VIAL IV PUSH SCH ×3 (03:31→16:29)
[2016-11-20] MEDS: PROPOFOL 1000 MG/100 ML INJ 100 ML IV SCH ×5 (04:03→21:19)
--- NOTE | 2016-11-20 04:39 | RADRPT ---
EXAM DATE/TIME: 11/20/2016 03:39 [facility] COMPARISON: CHEST SINGLE AP, November 18, 2016, 20:48. INDICATIONS : Shortness of breath, possible pulmonary disease. MEDICAL HISTORY : None. SURGICAL HISTORY : CABG. ENCOUNTER: Subsequent ACUITY: 4 - 6 days PAIN SCORE: Non-responsive. LOCATION: Bilateral chest FINDINGS: Dense bilateral consolidation in the lower lobes, right jugular line, endotracheal tube and NG tube a re again seen. Left upper lobe calcified granuloma. Cardiomegaly. Bilateral effusions are stable. CONCLUSION: No significant change has occurred. Yuval Marr MD on November 20, 2016 at 4:37 Board Certified Radiologist. This report was verified electronically.
[2016-11-20] MEDS: ISOSORBIDE MONONITRATE 60 MG TAB PO SCH ×2 (05:34→08:46)
[2016-11-20 06:43] LABS: ALT (GPT) 13 U/L (12-78); ANION GAP 11 MEQ/L (5-15); AST (GOT) 18 U/L (15-37); BICARBONATE 24.3 MEQ/L (21.0-32.0); BLOOD UREA NITROGEN 24 MG/DL (7-18); CHLORIDE 108 MEQ/L (98-107); GLOMERULAR FILTRATION RATE 66 ML/MIN (>89); MAGNESIUM 2.1 MG/DL (1.5-2.5); SODIUM (NA) 143 MEQ/L (136-145)
[2016-11-20 06:45] LABS: ALKALINE PHOSPHATASE 50 U/L (45-117); TOTAL BILIRUBIN ADULT 0.5 MG/DL (0.2-1.0)
[2016-11-20 06:48] LABS: POTASSIUM 3.4 MEQ/L (3.5-5.1)
[2016-11-20 07:15] LABS: AUTOMATED NEUTROPHIL # 3.4 TH/MM3 (1.8-7.7); BASOPHIL % 0.3 % (0.0-2.0); EOSINOPHIL # 0.1 TH/MM3 (0-0.4); EOSINOPHIL % 1.4 % (0.0-4.0); HEMATOCRIT 27.1 % (39.0-51.0); HEMO FLAGS DIFF FINAL; LYMPH % 18.9 % (9.0-44.0); LYMPHOCYTE # 0.9 TH/MM3 (1.0-4.8); MEAN CELL VOLUME 93.8 FL (80.0-100.0); MEAN CORPUSCULAR HEMOGLOBIN 32.6 PG (27.0-34.0); MEAN CORPUSCULAR HGB CONC 34.7 % (32.0-36.0); MONO % 5.4 % (0.0-8.0); PLATELET COUNT 151 TH/MM3 (150-450); RED BLOOD COUNT 2.89 MIL/MM3 (4.50-5.90); RED CELL DISTRIBUTION WIDTH 14.1 % (11.6-17.2); WHITE BLOOD COUNT 4.5 TH/MM3 (4.0-11.0)
[2016-11-20] MEDS: cefTRIAXone INJ 1,000 MG in SODIUM CHLORIDE 0.9% INJ 100 ML IV SCH (08:44)
[2016-11-20] MEDS: SODIUM CHLORIDE 0.9% FLUSH 5 ML FLUSH FLUSH SCH ×2 (08:44→21:00)
[2016-11-20] MEDS: CARVEDILOL 12.5 MG TAB PO SCH (08:45)
[2016-11-20] MEDS: SODIUM CHLORIDE 0.9% FLUSH 5 ML FLUSH FLUSH PRN (08:45)
[2016-11-20] MEDS: ASPIRIN EC 81 MG TABEC PO SCH (08:45)
[2016-11-20] MEDS: POTASSIUM CL 40 MEQ/30 ML LIQ UDC NG SCH (08:45)
[2016-11-20] MEDS: PANTOPRAZOLE SOD 20 MG DELAYED RELEASE TAB PO SCH (08:46)
[2016-11-20] MEDS: BUDESONIDE-FORMOTEROL 160/4.5 MCG INHALER INH SCH ×2 (08:46→21:00)
[2016-11-20] MEDS ORDERED: NOREPINEPHRINE-DEXTROSE DRIP 250 ML IV ONE (10:15)
--- NOTE | 2016-11-20 10:32 | PD.CARD.PN ---
Subjective Subjective Remarks Agitated earlier, now sedated, resting comfortably. Intubated. Sedated. Objective Medications Item Value Date Time Aspirin 325 mg 11/17/16 1515 (Aspirin) MEETING SPECIALIST/PO Furosemide 40 mg 11/19/16 1700 (Lasix Inj) Q8H/IV PUSH 11/20/16 0845 Potassium Chloride 40 meq 11/19/16 1400 (KCl 40 Meq/30 DAILY/NG 11/20/16 0845 ml Liq) Isosorbide 60 mg 11/19/16 0700 Mononitrate DAILY@07/PO 11/20/16 0846 (Imdur) Amlodipine 10 mg 11/18/16 0900 Besylate DAILY/PO 11/20/16 0846 (Norvasc) Aspirin 81 mg 11/18/16 0900 (Ecotrin Ec) DAILY/PO 11/20/16 0845 Carvedilol 25 mg 11/18/16 0900 (Coreg) DAILY/PO 11/20/16 0845 Atorvastatin 40 mg 11/17/16 2100 Calcium HS/PO 11/19/16 2255 (Lipitor) Vital Signs / I&O Vital Signs Date Time Temp Pulse Resp B/P Pulse Ox O2 Delivery O2 Flow Rate FiO2 11/20/16 07:49 100 40 11/20/16 04:05 97 40 11/20/16 04:00 40 11/20/16 04:00 98.4 56 18 156/73 100 11/20/16 01:14 100 40 11/20/16 00:00 98.3 56 22 129/60 99 11/20/16 00:00 40 11/19/16 22:00 99 40 11/19/16 20:00 98.3 56 18 138/64 100 11/19/16 20:00 40 11/19/16 19:30 100 40 11/19/16 16:43 100 30 11/19/16 16:00 98.5 75 22 138/64 96 11/19/16 12:00 98.4 98 16 136/64 96 I/O 11/19/16 11/19/16 11/19/16 11/20/16 11/20/16 11/20/16 07:00 15:00 23:00 07:00 15:00 23:00 Intake Total 345 ml 967 ml 1122 ml 788 ml Output Total 250 ml 1400 ml 1100 ml 1400 ml Balance 95 ml -433 ml 22 ml -612 ml IV Total 345 ml 967 ml 1122 ml 788 ml Output Urine Total 250 ml 1400 ml 1100 ml 1400 ml Stool Total 0 ml 0 ml Physical Exam GENERAL: Well developed, well nourished. Intubated. Sedated. HEENT: Jugular venous pressure is normal. CHEST: Lungs clear to auscultation anteriorly. CARDIAC: Regular rate and rhythm without S3, S4, or murmur. ABDOMEN: Soft, nontender, no hepatosplenomegaly. Bowel sounds present. EXTREMITIES: No clubbing, cyanosis, or edema. Laboratory Laboratory Tests Test 11/20/16 05:40 White Blood Count 4.5 TH/MM3 Red Blood Count 2.89 MIL/MM3 Hemoglobin 9.4 GM/DL Hematocrit 27.1 % Mean Corpuscular Volume 93.8 FL Mean Corpuscular Hemoglobin 32.6 PG Mean Corpuscular Hemoglobin 34.7 % Concent Red Cell Distribution Width 14.1 % Platelet Count 151 TH/MM3 Mean Platelet Volume 8.6 FL Neutrophils (%) (Auto) 74.0 % Lymphocytes (%) (Auto) 18.9 % Monocytes (%) (Auto) 5.4 % Eosinophils (%) (Auto) 1.4 % Basophils (%) (Auto) 0.3 % Neutrophils # (Auto) 3.4 TH/MM3 Lymphocytes # (Auto) 0.9 TH/MM3 Monocytes # (Auto) 0.2 TH/MM3 Eosinophils # (Auto) 0.1 TH/MM3 Basophils # (Auto) 0.0 TH/MM3 CBC Comment DIFF FINAL Differential Comment Sodium Level 143 MEQ/L Potassium Level 3.4 MEQ/L Chloride Level 108 MEQ/L Carbon Dioxide Level 24.3 MEQ/L Anion Gap 11 MEQ/L Blood Urea Nitrogen 24 MG/DL Creatinine 1.06 MG/DL Estimat Glomerular Filtration 66 ML/MIN Rate Random Glucose 78 MG/DL Calcium Level 8.4 MG/DL Magnesium Level 2.1 MG/DL Total Bilirubin 0.5 MG/DL Aspartate Amino Transf 18 U/L (AST/SGOT) Alanine Aminotransferase 13 U/L (ALT/SGPT) Alkaline Phosphatase 50 U/L Total Protein 6.0 GM/DL Albumin 2.9 GM/DL Assessment and Plan Problem List: (1) Coronary artery disease Assessment and Plan: Cath findings as reported, severe 3 vessel [place] CAD, patent MONTANEZ to LAD, patent SV to OM, occluded SV to RCA (new compared to 2014), s/p unsuccessful revascularization of this graft. Rec medical therapy. Continue oral nitrate, calcium channel and beta blockers, aspirin. (2) Ischemic cardiomyopathy Assessment and Plan: EF around 35%, with possibly severe MR by cath. Findings similar on echo. Suspect respiratory failure mainly due to CHF. Good diuresis past 24 hours. REC continue JOVITA-I, beta tavares as BP's tolerate continue diuresis at this time, patient's family decline consideration of surgical intervention for his MR (3) Hypertension Assessment and Plan: Hypotensive last night, now normotensive. Continue to monitor. Continue pressors as needed. (4) Paroxysmal atrial fibrillation Assessment and Plan: Remains in NSR. Unclear reason patient taken off anticoagulation therapy in the past. Will leave decision regarding anticoagulation to Dr. Olivo on outpatient f/u. Code Status full code Discussed Condition With patient's family Problem Qualifiers (1) Coronary artery disease: Qualified Code: I25.700 - Coronary artery disease involving coronary bypass graft of [place] heart with unstable angina pectoris (2) Hypertension: Qualified Code: I10 - Essential hypertension Herbert Gomez MD Nov 20, 2016 10:32
[2016-11-20] MEDS: AZITHROMYCIN INJ 500 MG in SODIUM CHLOR 0.9% 250 ML INJ 250 ML IV SCH ×2 (14:12→16:29)
--- NOTE | 2016-11-20 14:27 | HHI.CCPN ---
Subjective Remarks/Hospital Course Patient is an 86-year-old male admitted to hospitalist service on 11/17 with community-acquired pneumonia, NSTEMI. CCM consulted on 11/18/16 evening for acute respiratory failure. Patient underwent cardiac catheterization . Post cardiac catheterization and was extremely short of breath and then developed altered mental status and was unresponsive and hypoxemic. Stat chest x-ray showed pulmonary edema. Patient was tachypneic, using accessory muscles to breathe, and he was cyanotic. Patient was emergently intubated and placed on mechanical ventilation by Dr. Gilman. Cath findings-severe 3 vessel [place] CAD , patent MONTANEZ to LAD, patent SV to OM, occluded SV to RCA (new compared to 2013) , s/p unsuccessful revascularization of this graft. Dr. Gomez recommended medical therapy. Left ventriculogram EF possibly around 35%, with possibly severe MR. SUBJ: 11/19: Remains intubated sedated with propofol. Urine output 2 L in 24 hours. Receiving Lasix 40 mg daily I'll increase to 40 every 8 hours. 2-D echo sev MR, EF 35-40%. Akinesis of mid distal anterior septum and anterior myocardium. SUBJ 11/20: Remains intubated sedated. Urine output 4 L in 24 hours, with increased dose of Lasix. Discussed with Dr. Gomez and the patient's family, they are not interested in surgical options for MR. Dyan recommended medical weaning to extubation, and transition to comfort measures if the patient does not do well. Objective Vital Signs Date Time Temp Pulse Resp B/P Pulse Ox O2 Delivery O2 Flow Rate FiO2 11/20/16 11:03 100 40 11/20/16 04:00 98.4 56 18 156/73 11/18/16 19:24 Nasal Cannula 6.00 Intake and Output 11/19/16 11/19/16 11/20/16 08:00 16:00 00:00 Intake Total 345 ml 967 ml 1122 ml Output Total 250 ml 1400 ml 1100 ml Balance 95 ml -433 ml 22 ml Result Diagram: 11/20/16 0540 11/20/16 0540 Imaging Last 24 hours Impressions Chest X-Ray 11/18/16 0000 Signed Impressions: Service Date/Time: October 19:54 - CONCLUSION: Vascular findings suggesting CHF. Bibasilar opacities persist consolidated possibly in the left lower lobe and in the right lung base some degree of effusion. Riley Gaffney MD Objective Remarks GENERAL: Elderly well-developed patient in intubated sedated SKIN: Warm and dry. HEAD: Normocephalic. EYES: No scleral icterus. No injection or drainage. NECK: Supple, trachea midline. No JVD or lymphadenopathy. CARDIOVASCULAR: Regular rate and rhythm systolic murmur predominantly at the expected RESPIRATORY: Breath sounds equal bilaterally, with basilar crackles. No accessory muscle use. GASTROINTESTINAL: Abdomen soft, non-tender, nondistended. MUSCULOSKELETAL: No cyanosis, or edema. BACK: Nontender without obvious deformity. No CVA tenderness. NEURO: On sedation hold, do not open eyes, gets agitated, moves bilateral UE. Do not follow commands A/P Problem List: (1) Acute hypoxemic respiratory failure ICD Code: J96.01 Status: Acute (2) Acute systolic heart failure ICD Code: I50.21 Status: Acute (3) Severe mitral regurgitation ICD Code: I34.0 Status: Acute (4) Non-ST elevation [place] (NSTEMI) ICD Code: I21.4 Status: Acute (5) Coronary artery disease ICD Code: I25.9 Status: Acute (6) Hyperlipidemia ICD Code: E78.5 Status: Acute (7) Hypertension ICD Code: I10 Status: Acute (8) Troponin level elevated ICD Code: R74.8 Status: Acute (9) Ischemic cardiomyopathy ICD Code: I25.5 Status: Acute (10) Community acquired pneumonia ICD Code: J18.9 Status: Acute Assessment and Plan Neuro: - Propofol for sedation. Gets agitated on sedation hold - Start daily sedation vacation - Peripheral neuropathy- Gabapentin RESP: Acute hypoxemic respiratory failure Pulmonary edema - Patient would not tolerate BiPAP and was intubated to 11/18/16 - Continue mechanical ventilation, initiate spontaneous breathing trials, once adequately diuresed and mental status improved - IV Lasix as below CVS: Acute on chronic systolic heart failure NSTEMI Ischemic cardiomyopathy Severe mitral regurgitation Coronary artery disease - Status post cardiac catheterization Cath findings-severe 3 vessel [place] CAD, patent MONTANEZ to LAD, patent SV to OM, occluded SV to RCA (new compared to 2013) - s/p unsuccessful revascularization of this graft. Dr. Gomez recommended medical therapy. - Continue Aspirin statins Brilinta Coreg - IV Lasix 40 mg daily increased to every 8 hours with potassium replacement - Hold lisinopril at this time due to aggressive diuresis - Family at this time refuses CT surgery consult for mitral valve replacement GI: - Tube feeds with Jevity. IV Protonix for GI prophylaxis : - IV Lasix 40 mg every 8 hours with potassium replacement ID: Community-acquired pneumonia - Zithromax and Rocephin - Follow up on cultures Endo: - Electrolyte replacement per protocol DVT GI prophylaxis - Protonix heparin Critical Care: The total critical care time was 35 minutes. Time to perform other separately billable procedures was not included in the critical care time. Updated daughter and son at the bedside. Prognosis poor given ischemic cardiomyopathy with severe MR. They decline CTS consult Problem Qualifiers (1) Coronary artery disease: Qualified Code: I25.700 - Coronary artery disease involving coronary bypass graft of [place] heart with unstable angina pectoris (2) Hypertension: Qualified Code: I10 - Essential hypertension Alejandro Graham MD Nov 20, 2016 14:27
[2016-11-20] MEDS: SODIUM CHLOR 0.9% 1000 ML INJ 1,000 ML IV SCH ×2 (16:30→21:00)
[2016-11-20] MEDS: GABAPENTIN 400 MG CAP PO SCH (21:23)
[2016-11-20] MEDS: ATORVASTATIN 40 MG TAB PO SCH (21:23)
[2016-11-21] VITALS (11 sets, daily range): BP systolic 93–136; BP diastolic 55–74; PULSE 64–119; RESP 18–25; TEMP 97.4–98.1; O2SAT 91–100
[2016-11-21] MEDS: PANTOPRAZOLE SODIUM 40 MG VIAL IV PUSH SCH ×3 (00:04→20:26)
[2016-11-21] MEDS: FUROSEMIDE 40 MG/4 ML VIAL IV PUSH SCH ×3 (00:26→17:38)
[2016-11-21] MEDS: CHLORHEXIDINE GLUCONATE 2 % 1 PACK (2 CLOTHS)(taper/protocol) TOP SCH (00:26)
[2016-11-21] MEDS: PROPOFOL 1000 MG/100 ML INJ 100 ML IV SCH ×3 (02:27→10:06)
[2016-11-21] MEDS ORDERED: fentaNYL DRIP 250 ML IV SCH (03:45)
[2016-11-21] MEDS ORDERED: SODIUM CHLOR 0.9% 1000 ML INJ 1,000 ML IV ONE (04:00)
--- NOTE | 2016-11-21 04:58 | RADRPT ---
EXAM DATE/TIME: 11/21/2016 03:27 [facility] COMPARISON: CHEST SINGLE AP, November 20, 2016, 3:39. INDICATIONS : Shortness of breath, possible pulmonary disease. MEDICAL HISTORY : None. SURGICAL HISTORY : CABG. ENCOUNTER: Subsequent ACUITY: 1 week PAIN SCORE: Non-responsive. LOCATION: Bilateral chest FINDINGS: Bilateral effusions and consolidation at the bases again noted. Cardiomegaly, sternotomy wires, endot simona tube and NG tube are noted. Right jugular line unchanged. The ET tube tip projects to the car brenda. CONCLUSION: No significant change has occurred. ET tube tip at the jean paul. Yuval Marr MD on November 21, 2016 at 4:56 Board Certified Radiologist. This report was verified electronically.
[2016-11-21 06:28] LABS: ANION GAP 11 MEQ/L (5-15); AST (GOT) 16 U/L (15-37); BICARBONATE 22.9 MEQ/L (21.0-32.0); BLOOD UREA NITROGEN 24 MG/DL (7-18); CHLORIDE 109 MEQ/L (98-107); GLOMERULAR FILTRATION RATE 56 ML/MIN (>89); MAGNESIUM 1.9 MG/DL (1.5-2.5); POTASSIUM 3.9 MEQ/L (3.5-5.1); SODIUM (NA) 143 MEQ/L (136-145)
[2016-11-21 06:31] LABS: ALKALINE PHOSPHATASE 47 U/L (45-117); ALT (GPT) 12 U/L (12-78); TOTAL BILIRUBIN ADULT 0.6 MG/DL (0.2-1.0)
[2016-11-21] MEDS: SODIUM CHLOR 0.9% 1000 ML INJ 1,000 ML IV SCH ×2 (07:00→17:38)
[2016-11-21 07:02] LABS: AUTOMATED NEUTROPHIL # 4.9 TH/MM3 (1.8-7.7); BASOPHIL % 0.4 % (0.0-2.0); EOSINOPHIL # 0.3 TH/MM3 (0-0.4); EOSINOPHIL % 3.9 % (0.0-4.0); HEMATOCRIT 25.1 % (39.0-51.0); HEMO FLAGS DIFF FINAL; LYMPH % 17.6 % (9.0-44.0); LYMPHOCYTE # 1.3 TH/MM3 (1.0-4.8); MEAN CELL VOLUME 94.1 FL (80.0-100.0); MEAN CORPUSCULAR HEMOGLOBIN 32.4 PG (27.0-34.0); MEAN CORPUSCULAR HGB CONC 34.4 % (32.0-36.0); MONO % 8.7 % (0.0-8.0); NEUT % 69.4 % (16.0-70.0); PLATELET COUNT 164 TH/MM3 (150-450); RED BLOOD COUNT 2.66 MIL/MM3 (4.50-5.90); RED CELL DISTRIBUTION WIDTH 14.2 % (11.6-17.2); WHITE BLOOD COUNT 7.1 TH/MM3 (4.0-11.0)
[2016-11-21] MEDS ORDERED: DIGOXIN 0.5 MG/2 ML VIAL IV PUSH ONE (09:00)
[2016-11-21] MEDS: BUDESONIDE-FORMOTEROL 160/4.5 MCG INHALER INH SCH ×2 (09:00→20:27)
[2016-11-21] MEDS: CARVEDILOL 12.5 MG TAB PO SCH (09:00)
[2016-11-21] MEDS: cefTRIAXone INJ 1,000 MG in SODIUM CHLORIDE 0.9% INJ 100 ML IV SCH (10:02)
[2016-11-21] MEDS: SODIUM CHLORIDE 0.9% FLUSH 5 ML FLUSH FLUSH SCH ×2 (10:08→20:27)
[2016-11-21] MEDS: SODIUM CHLORIDE 0.9% FLUSH 5 ML FLUSH FLUSH PRN (10:08)
[2016-11-21] MEDS: ASPIRIN EC 81 MG TABEC PO SCH (10:09)
[2016-11-21] MEDS: POTASSIUM CL 40 MEQ/30 ML LIQ UDC NG SCH (10:11)
--- NOTE | 2016-11-21 10:33 | HHI.CCPN ---
Subjective Remarks/Hospital Course Patient is an 86-year-old male admitted to hospitalist service on 11/17 with community-acquired pneumonia, NSTEMI. CCM consulted on 11/18/16 evening for acute respiratory failure. Patient underwent cardiac catheterization . Post cardiac catheterization and was extremely short of breath and then developed altered mental status and was unresponsive and hypoxemic. Stat chest x-ray showed pulmonary edema. Patient was tachypneic, using accessory muscles to breathe, and he was cyanotic. Patient was emergently intubated and placed on mechanical ventilation by Dr. Gilman. Cath findings-severe 3 vessel [place] CAD , patent MONTANEZ to LAD, patent SV to OM, occluded SV to RCA (new compared to 2013) , s/p unsuccessful revascularization of this graft. Dr. Gomez recommended medical therapy. Left ventriculogram EF possibly around 35%, with possibly severe MR. SUBJ: 11/19: Remains intubated sedated with propofol. Urine output 2 L in 24 hours. Receiving Lasix 40 mg daily I'll increase to 40 every 8 hours. 2-D echo sev MR, EF 35-40%. Akinesis of mid distal anterior septum and anterior myocardium. SUBJ 11/20: Remains intubated sedated. Urine output 4 L in 24 hours, with increased dose of Lasix. Discussed with Dr. Gomez and the patient's family, they are not interested in surgical options for MR. I recommended medical weaning to extubation, and transition to comfort measures if the patient does not do well. 11/21: Patient remains intubated sedated. Family at bedside. Will start Precedex and initiate CPAP trials. UOP 3.9 L in 24 hours Objective Vital Signs Date Time Temp Pulse Resp B/P Pulse Ox O2 Delivery O2 Flow Rate FiO2 11/21/16 07:40 100 40 11/21/16 04:00 97.9 119 18 95/55 11/18/16 19:24 Nasal Cannula 6.00 Intake and Output 11/20/16 11/20/16 11/21/16 08:00 16:00 00:00 Intake Total 788 ml 1134 ml Output Total 1400 ml 1800 ml Balance -612 ml -666 ml Result Diagram: 11/21/16 0500 11/21/16 0500 Imaging Last 24 hours Impressions Chest X-Ray 11/18/16 0000 Signed Impressions: Service Date/Time: October 19:54 - CONCLUSION: Vascular findings suggesting CHF. Bibasilar opacities persist consolidated possibly in the left lower lobe and in the right lung base some degree of effusion. Riley Gaffney MD Objective Remarks GENERAL: Elderly well-developed patient in intubated sedated SKIN: Warm and dry. HEAD: Normocephalic. EYES: No scleral icterus. No injection or drainage. NECK: Supple, trachea midline. No JVD or lymphadenopathy. CARDIOVASCULAR: Regular rate and rhythm systolic murmur predominantly at the apex RESPIRATORY: Breath sounds equal bilaterally, with basilar crackles. No accessory muscle use. GASTROINTESTINAL: Abdomen soft, non-tender, nondistended. MUSCULOSKELETAL: No cyanosis, or edema. BACK: Nontender without obvious deformity. No CVA tenderness. NEURO: On sedation hold, do not open eyes, gets agitated, moves bilateral UE. Do not follow commands Urinary Catheter: Yes Assessment to: Continue Vascular Central Line Catheter: Yes Assessment to: Continue A/P Problem List: (1) Acute hypoxemic respiratory failure ICD Code: J96.01 Status: Acute (2) Acute systolic heart failure ICD Code: I50.21 Status: Acute (3) Severe mitral regurgitation ICD Code: I34.0 Status: Acute (4) Non-ST elevation [place] (NSTEMI) ICD Code: I21.4 Status: Acute (5) Troponin level elevated ICD Code: R74.8 Status: Acute (6) Ischemic cardiomyopathy ICD Code: I25.5 Status: Acute (7) Community acquired pneumonia ICD Code: J18.9 Status: Acute (8) Hyperlipidemia ICD Code: E78.5 Status: Chronic (9) Coronary artery disease ICD Code: I25.9 Status: Acute (10) Hypertension ICD Code: I10 Status: Chronic Assessment and Plan Neuro: - Currently on Propofol and fentanyl - Precedex for agitation - Daily sedation vacation - Peripheral neuropathy- Gabapentin RESP: Acute hypoxemic respiratory failure Pulmonary edema - Patient would not tolerate BiPAP and was intubated to 11/18/16 - Continue mechanical ventilation, initiate spontaneous breathing trials, family requests extubation today and if he fails transition to comfort measures - Check weaning parameters, ABG. if he passes will extubate - IV Lasix as below CVS: Acute on chronic systolic heart failure NSTEMI Ischemic cardiomyopathy Severe mitral regurgitation Coronary artery disease - Status post cardiac catheterization Cath findings-severe 3 vessel [place] CAD, patent MONTANEZ to LAD, patent SV to OM, occluded SV to RCA (new compared to 2014) - s/p unsuccessful revascularization of this graft. Dr. Gomez recommended medical therapy. - Continue Aspirin statins Brilinta Coreg - IV Lasix 40 mg every 8 hours with potassium replacement - Hold lisinopril at this time due to aggressive diuresis - Family at this time refuses CT surgery consult for mitral valve replacement GI: - Tube feeds with Jevity-hold for extubation. IV Protonix for GI prophylaxis : - IV Lasix 40 mg every 8 hours with potassium replacement ID: Community-acquired pneumonia - Zithromax and Rocephin - Follow up on cultures Endo: - Electrolyte replacement per protocol DVT GI prophylaxis - Protonix heparin Critical Care: The total critical care time was 35 minutes. Time to perform other separately billable procedures was not included in the critical care time. Updated daughter and son at the bedside. Prognosis poor given ischemic cardiomyopathy with severe MR. They declined CTS consult Problem Qualifiers (1) Coronary artery disease: Qualified Code: I25.700 - Coronary artery disease involving coronary bypass graft of [place] heart with unstable angina pectoris (2) Hypertension: Qualified Code: I10 - Essential hypertension Alejandro Graham MD Nov 21, 2016 10:33
--- NOTE | 2016-11-21 10:34 | PD.CARD.PN ---
Subjective Subjective Remarks Intubated. Sedated. Objective Medications Item Value Date Time Furosemide 40 mg 11/19/16 1700 (Lasix Inj) Q8H/IV PUSH 11/21/16 1007 Potassium Chloride 40 meq 11/19/16 1400 (KCl 40 Meq/30 DAILY/NG 11/21/16 1011 ml Liq) Isosorbide 60 mg 11/19/16 0700 Mononitrate DAILY@07/PO 11/20/16 0846 (Imdur) Amlodipine 10 mg 11/18/16 0900 Besylate DAILY/PO (Norvasc) Aspirin 81 mg 11/18/16 0900 (Ecotrin Ec) DAILY/PO 11/21/16 1009 Carvedilol 25 mg 11/18/16 0900 (Coreg) DAILY/PO Atorvastatin 40 mg 11/17/16 2100 Calcium HS/PO 11/20/163 (Lipitor) Vital Signs / I&O Vital Signs Date Time Temp Pulse Resp B/P Pulse Ox O2 Delivery O2 Flow Rate FiO2 11/21/16 07:40 100 40 11/21/16 04:38 100 40 11/21/16 04:00 97.9 119 18 95/55 100 11/21/16 04:00 40 11/21/16 01:08 100 40 11/21/16 00:00 98.1 118 18 93/60 100 11/21/16 00:00 40 11/20/16 22:10 100 40 11/20/16 20:00 97.6 73 18 127/62 100 11/20/16 20:00 40 11/20/16 19:44 100 40 11/20/16 17:11 100 40 11/20/16 16:00 97.4 73 18 123/63 100 11/20/16 16:00 40 11/20/16 12:00 40 11/20/16 12:00 98.2 70 16 118/57 100 11/20/16 11:03 100 40 I/O 11/20/16 11/20/16 11/20/16 11/21/16 11/21/16 11/21/16 07:00 15:00 23:00 07:00 15:00 23:00 Intake Total 788 ml 1134 ml 3366 ml Output Total 1400 ml 1800 ml 2125 ml Balance -612 ml -666 ml 1241 ml IV Total 788 ml 1134 ml 3066 ml Other 300 ml Output Urine Total 1400 ml 1800 ml 2125 ml Stool Total 0 ml 0 ml Physical Exam GENERAL: Well developed, well nourished. Intubated. Sedated. HEENT: Jugular venous pressure is normal. CHEST: Lungs clear to auscultation anteriorly. CARDIAC: Regular rate and rhythm without S3, S4, or murmur. ABDOMEN: Soft, nontender, no hepatosplenomegaly. Bowel sounds present. EXTREMITIES: No clubbing, cyanosis, or edema. Laboratory Laboratory Tests Test 11/21/16 05:00 White Blood Count 7.1 TH/MM3 Red Blood Count 2.66 MIL/MM3 Hemoglobin 8.6 GM/DL Hematocrit 25.1 % Mean Corpuscular Volume 94.1 FL Mean Corpuscular Hemoglobin 32.4 PG Mean Corpuscular Hemoglobin 34.4 % Concent Red Cell Distribution Width 14.2 % Platelet Count 164 TH/MM3 Mean Platelet Volume 8.5 FL Neutrophils (%) (Auto) 69.4 % Lymphocytes (%) (Auto) 17.6 % Monocytes (%) (Auto) 8.7 % Eosinophils (%) (Auto) 3.9 % Basophils (%) (Auto) 0.4 % Neutrophils # (Auto) 4.9 TH/MM3 Lymphocytes # (Auto) 1.3 TH/MM3 Monocytes # (Auto) 0.6 TH/MM3 Eosinophils # (Auto) 0.3 TH/MM3 Basophils # (Auto) 0.0 TH/MM3 CBC Comment DIFF FINAL Differential Comment Sodium Level 143 MEQ/L Potassium Level 3.9 MEQ/L Chloride Level 109 MEQ/L Carbon Dioxide Level 22.9 MEQ/L Anion Gap 11 MEQ/L Blood Urea Nitrogen 24 MG/DL Creatinine 1.23 MG/DL Estimat Glomerular Filtration 56 ML/MIN Rate Random Glucose 101 MG/DL Calcium Level 7.9 MG/DL Magnesium Level 1.9 MG/DL Total Bilirubin 0.6 MG/DL Aspartate Amino Transf 16 U/L (AST/SGOT) Alanine Aminotransferase 12 U/L (ALT/SGPT) Alkaline Phosphatase 47 U/L Total Protein 5.4 GM/DL Albumin 2.5 GM/DL Assessment and Plan Problem List: (1) Coronary artery disease Assessment and Plan: Cath findings as reported, severe 3 vessel [place] CAD, patent MONTANEZ to LAD, patent SV to OM, occluded SV to RCA (new compared to 2014), s/p unsuccessful revascularization of this graft. Rec medical therapy. Continue oral nitrate, calcium channel and beta blockers as BP's tolerate, aspirin. (2) Paroxysmal atrial fibrillation Assessment and Plan: Appears to be in an atrial tachycardia with 2:1 AV conduction at present, atrial fibrillation earlier. Rec IV Amiodarone. (3) Ischemic cardiomyopathy Assessment and Plan: EF around 35%, with possibly severe MR by cath. Findings similar on echo. Suspect respiratory failure mainly due to CHF. BP's relatively low, limiting medical therapy. REC continue JOVITA-I, beta tavares as BP's tolerate continue diuresis at this time, patient's family decline consideration of surgical intervention for his MR (4) Hypertension Assessment and Plan: Hypertension not active issue. Code Status NO CODE Discussed Condition With patient's family Problem Qualifiers (1) Coronary artery disease: Qualified Code: I25.700 - Coronary artery disease involving coronary bypass graft of [place] heart with unstable angina pectoris (2) Hypertension: Qualified Code: I10 - Essential hypertension Herbert Gomez MD Nov 21, 2016 10:34
[2016-11-21] MEDS ORDERED: AMIODARONE INJ 150 MG in DEXTROSE 5% IN WATER 100ML INJ 97 ML IV ONE ×2 (10:45)
[2016-11-21 11:31] LABS: BLOOD GAS BASE EXCESS -3.3 mmol/L (-2-2); BLOOD GAS CARBOXYHEMOGLOBIN 1.5 % (0-4); BLOOD GAS HCO3 21 mmol/L (22-26); BLOOD GAS METHEMOGLOBIN 1.2 % (0-2); BLOOD GAS O2 HGB SATURATION 96 % (90-100); BLOOD GAS PCO2 33 mmHg (38-42); BLOOD GAS PO2 136 mmHg (61-120); BLOOD GAS TOTAL HGB 9.4 G/DL (12.0-16.0); TEMP CORR TO 98.6
[2016-11-21] MEDS ORDERED: AMIODARONE INJ 450 MG in DEXTROSE 5% IN WATE(EXCEL) INJ 241 ML IV SCH ×2 (12:00)
[2016-11-21] MEDS: MORPHINE SULFATE 4 MG/ML INJ IV PUSH PRN ×2 (12:39→18:03)
[2016-11-21] MEDS: DEXMEDETOMIDINE INJ 50 ML IV SCH ×3 (15:13→23:54)
[2016-11-21] MEDS: AZITHROMYCIN INJ 500 MG in SODIUM CHLOR 0.9% 250 ML INJ 250 ML IV SCH (15:27)
[2016-11-21 16:19] LABS: CRITICAL VALUE NO; OXYGEN DEVICE VENTILATOR
[2016-11-21 16:20] LABS: VENT SETTINGS PRVC/AC550/R18P5I1.0
[2016-11-21 16:21] LABS: DRAW SITE RT BRACHIAL; FIO2 40 %; NUMBER OF ARTERIAL PUNCTURES 1; STAT YES; ULNAR PULSE Y
[2016-11-21] MEDS: GABAPENTIN 400 MG CAP PO SCH (20:27)
[2016-11-21] MEDS: ATORVASTATIN 40 MG TAB PO SCH (20:27)
[2016-11-22] VITALS (14 sets, daily range): BP systolic 116–153; BP diastolic 56–69; PULSE 52–71; RESP 13–28; TEMP 97.9–99.7; O2SAT 94–99
[2016-11-22] MEDS: FUROSEMIDE 40 MG/4 ML VIAL IV PUSH SCH ×3 (01:20→18:06)
[2016-11-22] MEDS: SODIUM CHLOR 0.9% 1000 ML INJ 1,000 ML IV SCH (02:44)
[2016-11-22] MEDS: CHLORHEXIDINE GLUCONATE 2 % 1 PACK (2 CLOTHS)(taper/protocol) TOP SCH (02:44)
[2016-11-22] MEDS: DEXMEDETOMIDINE INJ 50 ML IV SCH ×3 (02:45→09:12)
[2016-11-22] MEDS: ISOSORBIDE MONONITRATE 60 MG TAB PO SCH (07:00)
[2016-11-22] MEDS: BUDESONIDE-FORMOTEROL 160/4.5 MCG INHALER INH SCH ×2 (09:00→20:20)
[2016-11-22] MEDS: POTASSIUM CL 40 MEQ/30 ML LIQ UDC NG SCH (09:00)
[2016-11-22] MEDS: CARVEDILOL 12.5 MG TAB PO SCH (09:00)
[2016-11-22] MEDS: ASPIRIN EC 81 MG TABEC PO SCH (09:00)
[2016-11-22] MEDS: MORPHINE SULFATE 4 MG/ML INJ IV PUSH PRN ×4 (09:12→15:46)
[2016-11-22] MEDS: PANTOPRAZOLE SODIUM 40 MG VIAL IV PUSH SCH ×2 (09:12→20:19)
[2016-11-22] MEDS: SODIUM CHLORIDE 0.9% FLUSH 5 ML FLUSH FLUSH SCH ×2 (09:13→20:20)
--- NOTE | 2016-11-22 09:19 | PD.CARD.PN ---
Subjective Subjective Remarks Sedated. Minimally responsive. Objective Medications Item Value Date Time Furosemide 40 mg 11/19/16 1700 (Lasix Inj) Q8H/IV PUSH 11/22/16 0912 Potassium Chloride 40 meq 11/19/16 1400 (KCl 40 Meq/30 DAILY/NG ml Liq) Isosorbide 60 mg 11/19/16 0700 Mononitrate DAILY@07/PO (Imdur) Amlodipine 10 mg 11/18/16 0900 Besylate DAILY/PO (Norvasc) Aspirin 81 mg 11/18/16 0900 (Ecotrin Ec) DAILY/PO Carvedilol 25 mg 11/18/16 0900 (Coreg) DAILY/PO Atorvastatin 40 mg 11/17/16 2100 Calcium HS/PO (Lipitor) Vital Signs / I&O Vital Signs Date Time Temp Pulse Resp B/P Pulse Ox O2 Delivery O2 Flow Rate FiO2 11/22/16 08:08 98 Nasal Cannula 6.00 11/22/16 08:00 70 11/22/16 06:00 67 11/22/16 04:00 57 11/22/16 04:00 98.0 69 22 147/68 97 11/22/16 02:00 52 11/22/16 00:00 97.9 67 28 138/65 96 11/21/16 23:54 19 11/21/16 20:00 97.8 64 18 136/62 96 11/21/16 19:49 95 Nasal Cannula 6.00 11/21/16 16:00 97.6 67 25 119/58 96 11/21/16 12:16 91 Nasal Cannula 6.00 11/21/16 12:00 97.5 70 25 120/59 91 I/O 11/21/16 11/21/16 11/21/16 11/22/16 11/22/16 11/22/16 07:00 15:00 23:00 07:00 15:00 23:00 Intake Total 3366 ml 483 ml 1067 ml 774 ml Output Total 2125 ml 1825 ml 2000 ml 1750 ml Balance 1241 ml -1342 ml -933 ml -976 ml IV Total 3066 ml 483 ml 1067 ml 774 ml Other 300 ml Output Urine Total 2125 ml 1825 ml 2000 ml 1750 ml Stool Total 0 ml 0 ml Physical Exam GENERAL: Well developed, well nourished. Intubated. Sedated. HEENT: Jugular venous pressure is normal. CHEST: Coarse upper airway sounds. CARDIAC: Regular rate and rhythm without S3, S4, or murmur. ABDOMEN: Soft, nontender, no hepatosplenomegaly. Bowel sounds present. EXTREMITIES: No clubbing, cyanosis, or edema. Laboratory Laboratory Tests Test 11/21/16 11:15 Blood Gas Puncture Site RT BRACHIAL Blood Gas Patient Temperature 98.6 Blood Gas HCO3 21 mmol/L Blood Gas Base Excess -3.3 mmol/L Blood Gas Oxygen Saturation 96 % Arterial Blood pH 7.41 Arterial Blood Partial 33 mmHg Pressure CO2 Arterial Blood Partial 136 mmHg Pressure O2 Arterial Blood Oxygen Content 13.0 Vol % Arterial Blood 1.5 % Carboxyhemoglobin Arterial Blood Methemoglobin 1.2 % Blood Gas Hemoglobin 9.4 G/DL Oxygen Delivery Device VENTILATOR Blood Gas Ventilator Setting [facility]/AC550/[id number] Blood Gas Inspired Oxygen 40 % Assessment and Plan Problem List: (1) Coronary artery disease Assessment and Plan: Cath findings as reported, severe 3 vessel [place] CAD, patent MONTANEZ to LAD, patent SV to OM, occluded SV to RCA (new compared to 2013), s/p unsuccessful revascularization of this graft. Rec medical therapy. Continue oral nitrate, calcium channel and beta blockers as BP's tolerate, aspirin. Consider placement NG tube so patient can get medications. (2) Paroxysmal atrial fibrillation Assessment and Plan: Back in NSR. Cont beta tavares. Consider NG tube so patient can get meds. (3) Ischemic cardiomyopathy Assessment and Plan: EF around 35%, with possibly severe MR by cath. Findings similar on echo. Now s/p extubation. Respiratory status overall stable. REC continue JOVITA-I, beta tavares as BP's tolerate continue diuresis (4) Hypertension Assessment and Plan: Hypertension not active issue. Code Status No Code Discussed Condition With patient's daughter Problem Qualifiers (1) Coronary artery disease: Qualified Code: I25.700 - Coronary artery disease involving coronary bypass graft of [place] heart with unstable angina pectoris (2) Hypertension: Qualified Code: I10 - Essential hypertension Herbert Gomez MD Nov 22, 2016 09:19
[2016-11-22] MEDS: cefTRIAXone INJ 1,000 MG in SODIUM CHLORIDE 0.9% INJ 100 ML IV SCH (09:28)
--- NOTE | 2016-11-22 10:14 | PD.TRANSFR ---
Transfer Summary Admission Date Nov 17, 2016 at 08:44 Admitting Diagnosis PNA, r/o GA Diagnoses: (1) Acute systolic heart failure Diagnosis: Principal (2) Severe mitral regurgitation Diagnosis: Principal (3) Acute hypoxemic respiratory failure Diagnosis: Principal (4) Ischemic cardiomyopathy Diagnosis: Principal (5) Non-ST elevation GA (NSTEMI) Diagnosis: Principal (6) Community acquired pneumonia Diagnosis: Principal (7) Atypical chest pain Diagnosis: Principal (8) Troponin level elevated Diagnosis: Principal (9) Coronary artery disease Diagnosis: Secondary (10) Hyperlipidemia Diagnosis: Secondary (11) Hypertension Diagnosis: Secondary (12) Paroxysmal atrial fibrillation Diagnosis: Secondary Transfer Summary/Subjective Patient is an 86-year-old male admitted to hospitalist service on 11/17 with community-acquired pneumonia, NSTEMI. [facility] consulted on 11/18/16 evening for acute respiratory failure. Patient underwent cardiac catheterization . Post cardiac catheterization and was extremely short of breath and then developed altered mental status and was unresponsive and hypoxemic. Stat chest x-ray showed pulmonary edema. Patient was tachypneic, using accessory muscles to breathe, and he was cyanotic. Patient was emergently intubated and placed on mechanical ventilation by Dr. Gilman. Cath findings-severe 3 vessel [place] CAD , patent MONTANEZ to LAD, patent SV to OM, occluded SV to RCA (new compared to 2013) , s/p unsuccessful revascularization of this graft. Dr. Gomez recommended medical therapy. Left ventriculogram EF possibly around 35%, with possibly severe MR. 11/19: Remains intubated sedated with propofol. Urine output 2 L in 24 hours. Receiving Lasix 40 mg daily increased to 40 every 8 hours. 2-D echo sev MR, EF 35-40%. Akinesis of mid distal anterior septum and anterior myocardium. 11/20: Remains intubated sedated. Urine output 4 L in 24 hours, with increased dose of Lasix. Discussed with Dr. Gomez and the patient's family, they are not interested in surgical options for MR. I recommended medical weaning to extubation, and transition to comfort measures if the patient does not do well. 11/21: Patient remains intubated sedated. Family at bedside. Started Precedex and extubated to HI. UOP 3.9 L in 24 hours 11/22/16: Extubated yesterday tolerating well. Breathing comfortably, appears to be protecting airway. Urine output more than 5.5 L in 24 hours. Currently on Precedex 0.8 g per KG per hour-RN has started to wean. I have consulted palliative care to address goals of care Objective Vital Signs Date Time Temp Pulse Resp B/P Pulse Ox O2 Delivery O2 Flow Rate FiO2 11/22/16 08:08 98 Nasal Cannula 6.00 11/22/16 08:00 98.0 70 13 153/69 11/21/16 08:00 40 Intake and Output 11/21/16 11/21/16 11/22/16 08:00 16:00 00:00 Intake Total 3366 ml 483 ml 1067 ml Output Total 2125 ml 1825 ml 2000 ml Balance 1241 ml -1342 ml -933 ml Result Diagram: 11/21/16 0500 11/21/16 0500 Other Results Laboratory Tests Test 11/21/16 11:15 Blood Gas Puncture Site RT BRACHIAL Blood Gas Patient Temperature 98.6 Blood Gas HCO3 21 mmol/L (22-26) Blood Gas Base Excess -3.3 mmol/L (-2-2) Blood Gas Oxygen Saturation 96 % (90-100) Arterial Blood pH 7.41 (7.380-7.420) Arterial Blood Partial 33 mmHg (38-42) Pressure CO2 Arterial Blood Partial 136 mmHg Pressure O2 (61-120) Arterial Blood Oxygen Content 13.0 Vol % (12.0-20.0) Arterial Blood 1.5 % (0-4) Carboxyhemoglobin Arterial Blood Methemoglobin 1.2 % (0-2) Blood Gas Hemoglobin 9.4 G/DL (12.0-16.0) Oxygen Delivery Device VENTILATOR Blood Gas Ventilator Setting [facility]/AC550/[id number] Blood Gas Inspired Oxygen 40 % Imaging Last 24 hours Impressions Chest X-Ray 11/18/16 0000 Signed Impressions: Service Date/Time: October 19:54 - CONCLUSION: Vascular findings suggesting CHF. Bibasilar opacities persist consolidated possibly in the left lower lobe and in the right lung base some degree of effusion. Riley Gaffney MD Objective Remarks GENERAL: Elderly well-developed patient on NC, somnolent from Precedex SKIN: Warm and dry. HEAD: Normocephalic. EYES: No scleral icterus. No injection or drainage. NECK: Supple, trachea midline. No JVD or lymphadenopathy. CARDIOVASCULAR: Regular rate and rhythm systolic murmur predominantly at the apex RESPIRATORY: Breath sounds equal bilaterally, with few basilar crackles. No accessory muscle use. GASTROINTESTINAL: Abdomen soft, non-tender, nondistended. MUSCULOSKELETAL: No cyanosis BACK: Nontender without obvious deformity. No CVA tenderness. NEURO: Remains on Precedex. Moves bilateral UE. Do not follow commands Urinary Catheter: Yes Assessment to: Continue A/P Problem List: (1) Acute hypoxemic respiratory failure ICD Code: J96.01 Status: Acute (2) Acute systolic heart failure ICD Code: I50.21 Status: Acute (3) Severe mitral regurgitation ICD Code: I34.0 Status: Acute (4) Non-ST elevation GA (NSTEMI) ICD Code: I21.4 Status: Acute (5) Troponin level elevated ICD Code: R74.8 Status: Acute (6) Ischemic cardiomyopathy ICD Code: I25.5 Status: Acute (7) Community acquired pneumonia ICD Code: J18.9 Status: Acute (8) Hyperlipidemia ICD Code: E78.5 Status: Chronic (9) Coronary artery disease ICD Code: I25.9 Status: Acute (10) Hypertension ICD Code: I10 Status: Chronic Assessment and Plan Neuro: - Ativan and morphine when necessary for agitation. Wean to discontinue Precedex - Peripheral neuropathy- Gabapentin RESP: Acute hypoxemic respiratory failure Pulmonary edema - Patient was intubated to 11/18/16, extubated 11/21/16. Family has made him a DNR - DuoNeb every 6 hours and when necessary - Use BiPAP PRN CVS: Acute on chronic systolic heart failure NSTEMI Ischemic cardiomyopathy Severe mitral regurgitation Coronary artery disease - Status post cardiac catheterization-severe 3 vessel [place] CAD, patent MONTANEZ to LAD, patent SV to OM, occluded SV to RCA (new compared to 2014) - s/p unsuccessful revascularization of this graft. Dr. Gomez recommended medical therapy. - Continue Aspirin statins Brilinta Coreg - IV Lasix 40 mg every 8 hours with potassium replacement-reduce to 40 Q12 - Hold lisinopril at this time due to aggressive diuresis - Family at this time refuses CT surgery consult for mitral valve replacement/ repair GI: - Swallow evaluation once more awake. Otherwise will need NGT feeding : - IV Lasix 40 mg every 8 hours with potassium replacement-change to 40 q12 ID: Community-acquired pneumonia - Zithromax and Rocephin - Follow up on cultures Endo: - Electrolyte replacement per protocol DVT GI prophylaxis - Protonix heparin Critical Care: Level 2 Updated daughter and son at the bedside. Prognosis poor given ischemic cardiomyopathy with severe MR. They declined CTS consult. DNR now. Palliative care consulted. In my opinion patient is a good candidate for hospice. He has severe wide open MR, with ischemic cardiomyopathy EF 35% (EF in reality, accounting for MR is about 20%) [facility] to assume care in am 11/23/16 Problem Qualifiers (1) Coronary artery disease: Qualified Code: I25.700 - Coronary artery disease involving coronary bypass graft of [place] heart with unstable angina pectoris (2) Hypertension: Qualified Code: I10 - Essential hypertension Alejandro Graham MD Nov 22, 2016 10:14
[2016-11-22 10:23] LABS: ANION GAP 11 MEQ/L (5-15); AST (GOT) 38 U/L (15-37); BICARBONATE 24.9 MEQ/L (21.0-32.0); BLOOD UREA NITROGEN 21 MG/DL (7-18); CHLORIDE 106 MEQ/L (98-107); GLOMERULAR FILTRATION RATE 68 ML/MIN (>89); POTASSIUM 3.6 MEQ/L (3.5-5.1); SODIUM (NA) 142 MEQ/L (136-145)
[2016-11-22 10:27] LABS: ALKALINE PHOSPHATASE 58 U/L (45-117); ALT (GPT) 15 U/L (12-78); TOTAL BILIRUBIN ADULT 0.8 MG/DL (0.2-1.0)
--- NOTE | 2016-11-22 10:45 | PD.CONS ---
Consult Service Palliative Care Consult Requested By Dr Graham Primary Care Physician Jay Chávez MD Reason for Consultation a. To assist with evaluation and management of symptoms including:dyspnea, pain, b. To assist medical decision maker(s) with: better understanding of current medical conditions; weighing benefits/burdens of medical treatment options; making medical treatment decisions. . HPI History of Present Illness This 86 year old white male with a history of [id number] COPD, CAD status post CABG times 3 in 1996 and history of stents with hypertension and CHF who presented to the emergency department on 11/17/16 after experiencing shortness of breath times 2 days with atypical substernal chest pain. Days before, he had presented to [facility] with shortness of breath and was diagnosed with pneumonia. He was treated with antibiotics and was admitted for observation, but signed out AMA. Initial diagnostics indicated he had incurred a non--STEMI with CHF. He was seen by cardiology and taken to the [facility] on 11/18/16. Cath findings: severe 3 vessel pokagon CAD, patent MONTANEZ to LAD, patent SV to OM, occluded SV to RCA ( new compared to 2013), s/p unsuccessful revascularization of this graft. At the time he was found to have severe wide open MR, with ischemic cardiomyopathy EF 35% (EF in reality, accounting for MR, is about 20%). By comparison in 2013, his LVEF was about 45%. That evening, post procedure he developed respiratory distress requiring intubation. The Daughter, Tracey (POA/ HCS) opted against further aggressive measures, declining cardiothoracic consult for MVR. And decided on DNR status. Mr Levi was successfully extubated on 11/21/16 to a simple mask He is seen today with his daughter, Tracey at the bedside. He is minimally responsive off all sedating medications with the exception of prn opiates and benzodiazepines for pain and dyspnea. He will open one eye briefly and he will shake his head "no" to any question asked. He is currently on a simple mask at 12 L with an oxygen sat of 94. He is no longer in atrial fibrillation. An order was placed for a nasogastric tube for feeding. However, Tracey refused placement of the NG opting for IV fluids as she feels "he needs that". His daughter, Tracey indicated that Mr. Levi was very clear in his end-of- life goals not wanting to pursue aggressive measures if he could not obtain a quality of life. She also tells me that she has been noticing over the last year that his memory was declining. His short-term memory was becoming quite limited and more recently she was noticing the change also in his long-term memory. He had been living alone at home and was still driving. 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 Function/Cognitive Trajectory Per his daughter, he had been having declined cognition over the last year. He was supposed to use a rolling walker or cane at home but oftentimes would not. At this time,he is limitedly responsive. Review of Systems ROS Limitations: Clinical Condition, Unresponsive (will shake his head "no" to most questions; does not verbalize) Constitutional: COMPLAINS OF: Pain Ears, nose, mouth, throat: COMPLAINS OF: Hearing loss Respiratory: COMPLAINS OF: Shortness of breath Cardiovascular: COMPLAINS OF: Chest pain, Palpitations, Orthopnea Musculoskeletal: COMPLAINS OF: Joint pain, Back pain Other ROS: Review patient is unable to provide adequate review of systems. Information is obtained from his daughter, or review of records. 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 Past Surgical History Cholecystectomy: Yes Coronary Artery Bypass Graft: Yes (X 3 VESSELS) 1996 Bilateral knees repair, 1996 Rotator cuff, right shoulder, Repair 2010 Left hand carpal tunnel repair Reported Medications Brilinta 90 Mg Tab (Ticagrelor) 90 Mg Tab 90 Mg PO BID 30 Days Phenergan (Promethazine HCl) 25 Mg Tab 25 Mg PO Q6H PRN Nitroglycerin Tab 0.4 Mg Sl (Nitroglycerin) 0.4 Mg Subl 0.4 Mg SL Q5M PRN Macrobid (Nitrofurantoin Monohyd Macrocr) 100 Mg Cap 100 Mg PO BIDPC 5 Days Lortab 5/325 Tab (Hydrocodone-Acetaminophen) 1 Tab Tab 1 Tab PO Q6H PRN Imdur 30 Mg (Isosorbide Mononitrate) 30 Mg Tabcr 30 Mg PO DAILY@07 30 Days Coreg (Carvedilol) 6.25 Mg Tab 6.25 Mg PO Q12 30 Days Aspirin 81 Mg Chew 81 Mg PO DAILY Ecotrin Regular Strength (Aspirin) 325 Mg Tabec 325 Mg PO DAILY 30 Days Reported Iron (Ferrous Gluconate) 27 Mg Tab 27 Mg PO DAILY Vitamin D-3 (Cholecalciferol) 5,000 Unit Tab 5,000 Unit PO DAILY B-12 (Cyanocobalamin) 1 000 Cap 1,000 Mcg PO DAILY Polyethylene Glycol 3350 (Polyethylene Glycol 3350 (Bulk) 3,350 Mg Liq 3,350 Mg XX Zolpidem Tartrate 10 Mg Tab 10 Mg PO HS Symbicort (Budesonide/Formoterol Fumarate) 160 Mcg/4.5 Mcg Aer 2 Puff INH BID Flomax (Tamsulosin HCl) 0.4 Mg Cap 0.4 Mg PO DAILY Gabapentin 400 Mg Cap 400 Mg PO DAILY Lipitor 80 Mg Tab (Atorvastatin) 80 Mg Tab 80 Mg PO HS-RT Cozaar (Losartan Potassium) 100 Mg Tab 100 Mg PO DAILY Protonix (Pantoprazole Sodium) 40 Mg Tab 40 Mg PO DAILY Ventolin Hfa (Albuterol Sulfate) 8 Gm Aero 1 Puff INH Q4HPRN Amlodipine Besylate 10 Mg Tab 10 Mg PO DAILY Current Medications Medications (Trade) Dose Ordered Sig/Octavia Route Start Time Stop Time Status Last Admin (NS Flush) 2 ml UNSCH PRN FLUSH 11/17/16 08:45 11/21/16 10:08 (NS Flush) 2 ml BID FLUSH 11/17/16 09:00 11/22/16 09:13 (Tylenol) 650 mg Q4H PRN PO 11/17/16 08:45 (Zofran Inj) 4 mg Q6H PRN IVP 11/17/16 08:45 (Restoril) 15 mg HS PRN PO 11/17/16 08:45 11/17/16 20:57 (Tylenol) 650 mg Q6H PRN PO 11/17/16 08:45 11/17/16 20:59 (Narcan Inj) 0.4 mg UNSCH PRN IV 11/17/16 08:45 (Norvasc) 10 mg DAILY PO 11/18/16 09:00 11/20/16 08:46 (Lipitor) 40 mg HS PO 11/17/16 21:00 11/20/16 21:23 (Symbicort 160-4.5 Inh) 2 puff BID INH 11/17/16 21:00 11/17/16 20:58 Gabapentin 400 mg 400 mg HS PO 11/17/16 21:00 11/20/16 21:23 Ceftriaxone Sodium 1000 mg/ Sodium Chloride 100 ml @ 200 mls/hr Q24H IV 11/18/16 09:00 11/22/16 09:28 (Zithromax Inj/ NS 250 ml Inj) 250 ml @ 250 mls/hr Q24H IV 11/18/16 14:00 11/21/16 15:27 (Nitrostat Sl) 0.4 mg Q5M PRN SL 11/17/16 12:15 11/18/16 01:57 Aspirin 81 mg 81 mg DAILY PO 11/18/16 09:00 11/21/16 10:09 (NS 1000 ml Inj) 1,000 ml @ 100 mls/hr Q10H IV 11/18/16 09:00 11/23/16 08:59 11/22/16 02:44 Miscellaneous Information Patient in critical care unit? Ass... Q361D XX 11/18/16 01:45 (Chlorhexidine 2% Cloth) 3 pack UNSCH PRN TOP 11/18/16 01:45 11/23/16 01:34 (Coreg) 25 mg DAILY PO 11/18/16 09:00 11/20/16 08:45 (Vasotec) 5 mg DAILY PO 11/18/16 09:00 Hold 11/18/16 10:05 (Xanax) 0.5 mg Q8H PRN PO 11/18/16 17:00 11/18/16 16:10 (Atropine Inj) 0.5 mg UNSCH PRN IV 11/18/16 18:45 Isosorbide Mononitrate 60 mg 60 mg DAILY@07 PO 11/19/16 07:00 11/20/16 08:46 (Diprivan 1000 Mg/100ml Inj) 100 ml @ 0 mls/hr TITRATE IV 11/18/16 20:45 11/21/16 10:06 (Lasix Inj) 40 mg Q8H IV PUSH 11/19/16 17:00 11/22/16 09:12 Potassium Chloride 40 meq 40 meq DAILY NG 11/19/16 14:00 11/21/16 10:11 Potassium Chloride 100 ml @ 50 mls/hr Q2H PRN IV 11/19/16 13:45 (KCl 20 Meq Premix Inj) 100 ml @ 50 mls/hr Q2H PRN IV 11/19/16 13:45 11/20/16 07:23 Potassium Chloride 40 meq 40 meq UNSCH PRN PO/TUBE 11/19/16 13:45 Potassium Chloride 100 ml @ 25 mls/hr UNSCH PRN IV 11/19/16 13:45 Potassium Chloride 100 ml @ 50 mls/hr Q2H PRN IV 11/19/16 13:45 (Magnesium Sulfate Inj/NS Inj) 100 ml @ 50 mls/hr UNSCH PRN IV 11/19/16 13:45 Magnesium Oxide 800 mg 800 mg UNSCH PRN PO 11/19/16 13:45 (Magnesium Sulfate Inj/NS Inj) 100 ml @ 50 mls/hr UNSCH PRN IV 11/19/16 13:45 Potassium Phosphate 2000 mg 2,000 mg Q4H PRN PO 11/19/16 13:45 (Sodium Phosphate Inj/NS 250 ml Inj) 250 ml @ 42 mls/hr UNSCH PRN IV 11/19/16 13:45 (KCl 40 Meq/30 ml Liq) 40 meq UNSCH PRN PO/TUBE 11/19/16 13:45 Potassium Phosphate 2000 mg 2,000 mg UNSCH PRN PO/TUBE 11/19/16 13:45 (Potassium Phosphate Inj/NS 250 ml Inj) 260 ml @ 42 mls/hr UNSCH PRN IV 11/19/16 13:45 Pantoprazole Sodium 20 mg 20 mg BID IV PUSH 11/21/16 00:04 11/22/16 09:12 (fentaNYL DRIP) 250 ml @ 0 mls/hr TITRATE IV 11/21/16 03:45 11/21/16 06:22 Morphine Sulfate 4 mg 4 mg Q2H PRN IV PUSH 11/21/16 09:00 11/22/16 09:12 (Precedex Inj) 50 ml @ 0 mls/hr TITRATE IV 11/21/16 10:30 11/22/16 09:12 Family History Mother age 80 from heart failure Mother with history of asthma Substance Use Tobacco: 2 packs a day times 30 years Alcohol: None. No use of late Prescription med abuse: No reported history. Illicits: No reported history . Psychosocial History Mr. Levi is . 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 Per his daughter. He was a self-made man growing up with little to nothing, having to stop school in the ninth grade but later going [id number]. He became fairly successful and was able to travel worldwide with his . 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 He said in the [employer] years. He was twice. His daughter, Tracey, who is HCS/POA was the only daughter by that marriage. He has 5 children by a previous marriage: Herbert Pierce, Chris, Christine and Onelia. Stan and Herbert are local. There is a complicated family dynamic between Tracey and the other children. Tracey, a nurse, lives in [place] and tells me that she would drive down 2 times a week to look in on her father. Tracey is very clear on being able to express the needs of her father at end-of-life. She indicated that " when the time came came" He would move closer to her so she care for him. She has been listed as [facility] since 2005. She states that while the family dynamics have been challenging, the family is in agreement on comfort measures at this time. DaughterTracey [place]- HCS/POA- [phone] cell /[phone] work SonHerbert [place] [phone] - listed as alternate [facility] Son,- Stan [phone] - [place] Son, Desmond Onelia Doestephani - [place] - [phone] Christine Doe is in [place] (?) Spiritual/Cultural Factors Yarsanism - open to having a embedded firmware engineer Living Will: Copy in medical record Health Care Surrogate: Copy in medical record Physical Exam Vital Signs Date Time Temp Pulse Resp B/P Pulse Ox O2 Delivery O2 Flow Rate FiO2 11/22/16 08:08 98 Nasal Cannula 6.00 11/22/16 08:00 98.0 70 13 153/69 97 11/22/16 08:00 70 11/22/16 06:00 67 11/22/16 04:00 57 11/22/16 04:00 98.0 69 22 147/68 97 11/22/16 02:00 52 11/22/16 00:00 97.9 67 28 138/65 96 11/21/16 23:54 19 11/21/16 20:00 97.8 64 18 136/62 96 11/21/16 19:49 95 Nasal Cannula 6.00 11/21/16 16:00 97.6 67 25 119/58 96 11/21/16 12:16 91 Nasal Cannula 6.00 11/21/16 12:00 97.5 70 25 120/59 91 11/21/16 11/22/16 19:00 07:00 Intake Total 483 ml 1841 ml Output Total 1825 ml 3750 ml Balance -1342 ml -1909 ml IV Total 483 ml 1841 ml Output Urine Total 1825 ml 3750 ml Stool Total 0 ml Exam CONSTITUTIONAL/GENERAL: This is an adequately nourished patient, in no apparent distress. TUBES/LINES/DRAINS: PICC line, Lord catheter SKIN: No jaundice, rashes, or lesions. Ecchymoses and skin tears on upper extremities. Skin temperature appropriate. Not diaphoretic. HEAD: Atraumatic. Normocephalic. EYES: Pupils equal and round and reactive. No scleral icterus. No injection or drainage.- ENT: Hard of hearing , Nose without bleeding or purulent drainage. Mouth dry without visible erythema; edentulous NECK: Trachea midline. Supple, nontender. No palpable thyroid enlargement or nodularity. CARDIOVASCULAR: Regular rate and rhythm without murmurs, gallops, or rubs. No JVD. Peripheral pulses symmetric. RESPIRATORY/CHEST: Symmetric, unlabored respirations. Coarse breath sounds anteriorly; diminished posteriorly mid to base. Coarse cough. GASTROINTESTINAL: Abdomen soft, non-tender, nondistended. No hepato-splenomegaly , or palpable masses. No guarding. Bowel sounds present. GENITOURINARY: Without palpable bladder distension. Lord catheter in place. MUSCULOSKELETAL: Extremities without clubbing, cyanosis, or edema. No joint tenderness or effusion noted. No mottling or clubbing. LYMPHATICS: No palpable cervical or supraclavicular adenopathy. NEUROLOGICAL: Eyes closed with limited responsiveness other than to shake his head "no". Does not follow commands. Not moving extremities independently. PSYCHIATRIC: Unable to assess Diagnostic Tests Laboratory Laboratory Tests Test 11/20/16 11/21/16 11/21/16 05:40 05:00 11:15 White Blood Count 4.5 TH/MM3 7.1 TH/MM3 (4.0-11.0) (4.0-11.0) Red Blood Count 2.89 MIL/MM3 2.66 MIL/MM3 (4.50-5.90) (4.50-5.90) Hemoglobin 9.4 GM/DL 8.6 GM/DL (13.0-17.0) (13.0-17.0) Hematocrit 27.1 % 25.1 % (39.0-51.0) (39.0-51.0) Mean Corpuscular Volume 93.8 FL 94.1 FL (80.0-100.0) (80.0-100.0) Mean Corpuscular Hemoglobin 32.6 PG 32.4 PG (27.0-34.0) (27.0-34.0) Mean Corpuscular Hemoglobin 34.7 % 34.4 % Concent (32.0-36.0) (32.0-36.0) Red Cell Distribution Width 14.1 % 14.2 % (11.6-17.2) (11.6-17.2) Platelet Count 151 TH/MM3 164 TH/MM3 (150-450) (150-450) Mean Platelet Volume 8.6 FL 8.5 FL (7.0-11.0) (7.0-11.0) Neutrophils (%) (Auto) 74.0 % 69.4 % (16.0-70.0) (16.0-70.0) Lymphocytes (%) (Auto) 18.9 % 17.6 % (9.0-44.0) (9.0-44.0) Monocytes (%) (Auto) 5.4 % (0.0-8.0) 8.7 % (0.0-8.0) Eosinophils (%) (Auto) 1.4 % (0.0-4.0) 3.9 % (0.0-4.0) Basophils (%) (Auto) 0.3 % (0.0-2.0) 0.4 % (0.0-2.0) Neutrophils # (Auto) 3.4 TH/MM3 4.9 TH/MM3 (1.8-7.7) (1.8-7.7) Lymphocytes # (Auto) 0.9 TH/MM3 1.3 TH/MM3 (1.0-4.8) (1.0-4.8) Monocytes # (Auto) 0.2 TH/MM3 0.6 TH/MM3 (0-0.9) (0-0.9) Eosinophils # (Auto) 0.1 TH/MM3 0.3 TH/MM3 (0-0.4) (0-0.4) Basophils # (Auto) 0.0 TH/MM3 0.0 TH/MM3 (0-0.2) (0-0.2) CBC Comment DIFF FINAL DIFF FINAL Differential Comment Sodium Level 143 MEQ/L 143 MEQ/L (136-145) (136-145) Potassium Level 3.4 MEQ/L 3.9 MEQ/L (3.5-5.1) (3.5-5.1) Chloride Level 108 MEQ/L 109 MEQ/L (98-107) (98-107) Carbon Dioxide Level 24.3 MEQ/L 22.9 MEQ/L (21.0-32.0) (21.0-32.0) Anion Gap 11 MEQ/L (5-15) 11 MEQ/L (5-15) Blood Urea Nitrogen 24 MG/DL (7-18) 24 MG/DL (7-18) Creatinine 1.06 MG/DL 1.23 MG/DL (0.60-1.30) (0.60-1.30) Estimat Glomerular Filtration 66 ML/MIN (>89) 56 ML/MIN (>89) Rate Random Glucose 78 MG/DL 101 MG/DL (74-106) (74-106) Calcium Level 8.4 MG/DL 7.9 MG/DL (8.5-10.1) (8.5-10.1) Magnesium Level 2.1 MG/DL 1.9 MG/DL (1.5-2.5) (1.5-2.5) Total Bilirubin 0.5 MG/DL 0.6 MG/DL (0.2-1.0) (0.2-1.0) Aspartate Amino Transf 18 U/L (15-37) 16 U/L (15-37) (AST/SGOT) Alanine Aminotransferase 13 U/L (12-78) 12 U/L (12-78) (ALT/SGPT) Alkaline Phosphatase 50 U/L (45-117) 47 U/L (45-117) Total Protein 6.0 GM/DL 5.4 GM/DL (6.4-8.2) (6.4-8.2) Albumin 2.9 GM/DL 2.5 GM/DL (3.4-5.0) (3.4-5.0) Blood Gas Puncture Site RT BRACHIAL Blood Gas Patient Temperature 98.6 Blood Gas HCO3 21 mmol/L (22-26) Blood Gas Base Excess -3.3 mmol/L (-2-2) Blood Gas Oxygen Saturation 96 % (90-100) Arterial Blood pH 7.41 (7.380-7.420) Arterial Blood Partial 33 mmHg (38-42) Pressure CO2 Arterial Blood Partial 136 mmHg Pressure O2 (61-120) Arterial Blood Oxygen Content 13.0 Vol % (12.0-20.0) Arterial Blood 1.5 % (0-4) Carboxyhemoglobin Arterial Blood Methemoglobin 1.2 % (0-2) Blood Gas Hemoglobin 9.4 G/DL (12.0-16.0) Oxygen Delivery Device VENTILATOR Blood Gas Ventilator Setting [place]/AC550/L13W4I7.0 Blood Gas Inspired Oxygen 40 % Result Diagram: 11/21/16 0500 11/21/16 0500 Imaging Last 72 hours Impressions Chest X-Ray 11/21/16 0600 Signed Impressions: Service Date/Time: Monday, November 21, 2016 03:27 - CONCLUSION: No significant change has occurred. ET tube tip at the jean paul. Yuval Marr MD Chest X-Ray 11/20/16 0600 Signed Impressions: Service Date/Time: Sunday, November 20, 2016 03:39 - CONCLUSION: No significant change has occurred. Yuval Marr MD Chest X-Ray 11/18/16 0000 Signed Impressions: Service Date/Time: October 19:54 - CONCLUSION: Vascular findings suggesting CHF. Bibasilar opacities persist consolidated possibly in the left lower lobe and in the right lung base some degree of effusion. Riley Gaffney MD Patient/Family Conference Present at Family Conference: Met with his daughter, Tracey at the bedside. She is the youngest of 6 children from his second marriage. She is listed as health care surrogate and power of transactional attorney. She is a nurse and lives in the [place] area. Tracey tells me she has been highly involved in his care over the years with his various health issues. She is happy opportunity to talk with him about his goals of care and wishes at end-of-life. For the sake of edification, We talked about the pros and cons of having an MVR or coronary artery bypass graft to bypass the blocked RCA. Discussed rehabilitation time, as well as what his quality of life would be postoperatively in light of his age, history of advanced COPD, history of arthritis, as well as changes in his mental status that she has been observing over the last year. Also discussed the pros and cons of a feeding tube, IV fluids, rehabilitation. She is reasonably certain that at this point he would not want to pursue aggressive measures. At this point in time, she is opting for comfort measures and hospice. However , she is feeling that she would want him to have IV fluids. Attempted to discuss the issues that arise with fluids, but she wasn't ready to accept that. She discussed the use of scheduled pain medication for chronic back pain and shoulder pain. She is also observant of his periodic labored breathing. While she tells me about the challenging family dynamics with his other family, she states that they are in agreement with his course of care at this point in time. Family Conference Location: Bedside Issues Discussed: * Palliative care role, purpose, approach * Additional medical, psychosocial, and spiritual history * Patients general health, functional status, and cognitive changes in the months leading up to the current hospitalization * Patient/family understanding of the current medical problems * Patient/family understanding of prognosis * Patients goals of care as best understood from advance directives and/or conversations and/or values * Current medical treatment options and benefits/burdens of those options * Likely scenarios comparing ongoing aggressive care with a transition to comfort measures only * Questions answered to the best of my ability * Palliative care contact information provided Assessment and Plan Disease Oriented Problem List: (1) Non-ST elevation [place] (NSTEMI) (2) CHF (congestive heart failure) (3) Acute systolic heart failure (4) COPD (chronic obstructive pulmonary disease) Symptom Scale: (1) Pain 0-10 Scale: Unable to quantify (2) Dyspnea 0-10 Scale: Unable to quantify (3) Agitation 0-10 Scale: Unable to quantify Pertinent Non-Medical Issues Psychosocial: Spiritual: Yarsanism Legal: none identified Ethical issues impacting care: none identified Important Contacts DaughterTracey [place]- [facility]- [phone] cell / home Son, Herbert Levi [place] [phone] -designated as alternates to [facility] Other children: Son,- Stan [phone] SonSkarina Daughter/Christine Daughter/ Onelia Chu [phone] Prognosis Poor In light of advanced age, NSTEMI, 100% occluded RCA, EF 20% with severe mitral regurg, CHF, COPD, recent pneumonia, declining cognitive status Code Status: No Code Plan Decision Maker: Advised medical team to contact and discusse with Tracey Richardson, [place]- Health Care Proxy [facility]- [phone] cell / [phone] home Son, Herbert [facility] [phone] -designated as alternates to [facility] Code Status: No code DNR Family Discussion: Spoke with daughterTracey was opting for no aggressive measures and "comfort measures" but is wanting IVFs for now. She refused NGT today. She is clear in her father's declared goals of care. Hospice consult placed for agency in [place].She did not want to consider a local care center as she lives in [place]. She has a and 10yr old son that she picks up from school daily. Symptoms: Dyspnea, pain Palliative care phone number provided - will follow during hospital stay. Thank you for the opportunity to participate in the care of Mr. Levi. Attestation To help prompt me to consider important information that might be impacting today's encounter and assessment, information from prior notes written by myself or my colleagues may have been "brought forward" into today's note. My signature on this note, however, is an attestation that I personally performed the exam, history, and/or decision-making noted today, and, unless otherwise indicated, the interactions with patient, family, and staff as well as the review of records all occurred today. I also attest that the listed assessment and stated plan reflect my best clinical judgment today based on the combination of historical information, prior notes, and today's exam/ interactions. When time spent is documented, it refers only to time spent today by the signer, or if indicated, combined time spent today by collaborating physician/nurse practitioner. Ludmila Rob Nov 22, 2016 10:45 interactions. When time spent is documented, it refers only to time spent today by the signer, or if indicated, combined time spent today by collaborating physician/nurse practitioner. Ludmila Rob Nov 22, 2016 10:45
[2016-11-22] MEDS: LORazepam 2 MG/ML VIAL IV PUSH PRN ×2 (11:05→13:18)
[2016-11-22] MEDS: SODIUM CHLORIDE 0.9% FLUSH 5 ML FLUSH FLUSH PRN (11:06)
[2016-11-22] MEDS: RESP: ALBUTEROL 2.5 MG/IPRATROPIUM 0.5 MG NEB (SCH) NEB ×3 (11:49→19:54)
[2016-11-22] MEDS: MORPHINE SULFATE 4 MG/ML INJ IV PUSH SCH ×4 (14:00→23:07)
[2016-11-22] MEDS: AZITHROMYCIN INJ 500 MG in SODIUM CHLOR 0.9% 250 ML INJ 250 ML IV SCH (15:46)
[2016-11-22] MEDS: GABAPENTIN 400 MG CAP PO SCH (20:20)
[2016-11-22] MEDS: ATORVASTATIN 40 MG TAB PO SCH (20:20)
[2016-11-23] VITALS: BP 139/63; PULSE 63; PULSE 66; RESP 24; TEMP 100.2; O2SAT 95
[2016-11-23] MEDS: FUROSEMIDE 40 MG/4 ML VIAL IV PUSH SCH ×2 (01:34→08:05)
[2016-11-23] MEDS: MORPHINE SULFATE 4 MG/ML INJ IV PUSH SCH ×3 (01:35→08:04)
[2016-11-23 04:00] VITALS: BP 158/70; PULSE 69; RESP 21; TEMP 99.2; O2SAT 95
[2016-11-23] MEDS: RESP: ALBUTEROL 2.5 MG/IPRATROPIUM 0.5 MG NEB (SCH) NEB ×2 (04:16→07:42)
[2016-11-23] MEDS: MORPHINE SULFATE 4 MG/ML INJ IV PUSH PRN (04:39)
[2016-11-23] MEDS: LORazepam 2 MG/ML VIAL IV PUSH PRN (04:53)
[2016-11-23 06:10] LABS: AUTOMATED NEUTROPHIL # 6.3 TH/MM3 (1.8-7.7); BASOPHIL % 0.3 % (0.0-2.0); EOSINOPHIL # 0.1 TH/MM3 (0-0.4); EOSINOPHIL % 1.8 % (0.0-4.0); HEMATOCRIT 30.8 % (39.0-51.0); HEMO FLAGS DIFF FINAL; LYMPH % 11.8 % (9.0-44.0); MEAN CELL VOLUME 93.6 FL (80.0-100.0); MEAN CORPUSCULAR HEMOGLOBIN 32.3 PG (27.0-34.0); MEAN CORPUSCULAR HGB CONC 34.5 % (32.0-36.0); MONO % 9.7 % (0.0-8.0); NEUT % 76.4 % (16.0-70.0); PLATELET COUNT 172 TH/MM3 (150-450); RED BLOOD COUNT 3.29 MIL/MM3 (4.50-5.90); RED CELL DISTRIBUTION WIDTH 14.2 % (11.6-17.2); WHITE BLOOD COUNT 8.2 TH/MM3 (4.0-11.0)
[2016-11-23 06:39] LABS: ALT (GPT) 18 U/L (12-78); ANION GAP 13 MEQ/L (5-15); AST (GOT) 33 U/L (15-37); BICARBONATE 26.1 MEQ/L (21.0-32.0); BLOOD UREA NITROGEN 28 MG/DL (7-18); CHLORIDE 107 MEQ/L (98-107); GLOMERULAR FILTRATION RATE 63 ML/MIN (>89); MAGNESIUM 2.2 MG/DL (1.5-2.5); POTASSIUM 3.6 MEQ/L (3.5-5.1); SODIUM (NA) 146 MEQ/L (136-145)
[2016-11-23 06:41] LABS: ALKALINE PHOSPHATASE 85 U/L (45-117); TOTAL BILIRUBIN ADULT 0.7 MG/DL (0.2-1.0)
--- NOTE | 2016-11-23 06:56 | RADRPT ---
EXAM DATE/TIME: 11/23/2016 05:30 [facility] COMPARISON: CHEST SINGLE AP, November 21, 2016, 3:27. INDICATIONS : Respiratory disease. MEDICAL HISTORY : None. SURGICAL HISTORY : CABG. ENCOUNTER: Subsequent ACUITY: 4 - 6 days PAIN SCORE: Non-responsive. LOCATION: Bilateral chest FINDINGS: Previous endotracheal tube and nasogastric tube have been removed. Right central line in superior deborah a cava. Bilateral mostly basilar airspace disease and pleural effusions present. No pneumothorax. CONCLUSION: 1. Basilar airspace disease and pleural effusions similar to November 21. Right central line in super ior vena cava. Interval extubation. Edgar Fulton MD on November 23, 2016 at 6:54 Board Certified Radiologist. This report was verified electronically.
[2016-11-23] MEDS: ISOSORBIDE MONONITRATE 60 MG TAB PO SCH (07:00)
[2016-11-23 07:43] VITALS: O2SAT 97
[2016-11-23 08:00] VITALS: BP 131/58; PULSE 79; RESP 20; TEMP 98.1; O2SAT 97
[2016-11-23] MEDS: SODIUM CHLORIDE 0.9% FLUSH 5 ML FLUSH FLUSH SCH (08:05)
[2016-11-23] MEDS: cefTRIAXone INJ 1,000 MG in SODIUM CHLORIDE 0.9% INJ 100 ML IV SCH (08:05)
[2016-11-23] MEDS: PANTOPRAZOLE SODIUM 40 MG VIAL IV PUSH SCH (08:05)
[2016-11-23] MEDS: CARVEDILOL 12.5 MG TAB PO SCH (08:06)
[2016-11-23] MEDS: ASPIRIN EC 81 MG TABEC PO SCH (08:06)
[2016-11-23] MEDS: BUDESONIDE-FORMOTEROL 160/4.5 MCG INHALER INH SCH (08:06)
[2016-11-23] MEDS: POTASSIUM CL 40 MEQ/30 ML LIQ UDC NG SCH (08:06)
--- NOTE | 2016-11-23 13:24 | PD.CARD.PN ---
Subjective Subjective Remarks Patient seen early this morning. Patient sedated. Objective Vital Signs / I&O Vital Signs Date Time Temp Pulse Resp B/P Pulse Ox O2 Delivery O2 Flow Rate FiO2 11/23/16 08:00 98.1 79 20 131/58 97 11/23/16 08:00 79 11/23/16 07:43 97 Simple Mask 6.00 11/23/16 04:00 69 11/23/16 04:00 99.2 69 21 158/70 95 11/23/16 00:00 100.2 66 24 139/63 95 11/23/16 00:00 63 11/22/16 20:00 63 11/22/16 20:00 99.7 63 20 143/65 97 11/22/16 19:54 98 Simple Mask 10.00 11/22/16 18:00 59 11/22/16 16:00 98.7 61 23 116/56 94 11/22/16 16:00 61 11/22/16 14:00 58 I/O 11/22/16 11/22/16 11/22/16 11/23/16 11/23/16 11/23/16 07:00 15:00 23:00 07:00 15:00 23:00 Intake Total 774 ml 597 ml 600 ml Output Total 1750 ml 1400 ml 650 ml 700 ml Balance -976 ml -803 ml -50 ml -700 ml IV Total 774 ml 597 ml 600 ml Output Urine Total 1750 ml 1400 ml 650 ml 700 ml Stool Total 0 ml 0 ml # Bowel Movements 0 Physical Exam GENERAL: Well developed, well nourished. Intubated. Sedated. HEENT: Jugular venous pressure is normal. CHEST: Lungs clear anteriorly. CARDIAC: Regular rate and rhythm without S3, S4, or murmur. ABDOMEN: Soft, nontender, no hepatosplenomegaly. Bowel sounds present. EXTREMITIES: No clubbing, cyanosis, or edema. Laboratory Laboratory Tests Test 11/23/16 05:25 White Blood Count 8.2 TH/MM3 Red Blood Count 3.29 MIL/MM3 Hemoglobin 10.6 GM/DL Hematocrit 30.8 % Mean Corpuscular Volume 93.6 FL Mean Corpuscular Hemoglobin 32.3 PG Mean Corpuscular Hemoglobin 34.5 % Concent Red Cell Distribution Width 14.2 % Platelet Count 172 TH/MM3 Mean Platelet Volume 8.7 FL Neutrophils (%) (Auto) 76.4 % Lymphocytes (%) (Auto) 11.8 % Monocytes (%) (Auto) 9.7 % Eosinophils (%) (Auto) 1.8 % Basophils (%) (Auto) 0.3 % Neutrophils # (Auto) 6.3 TH/MM3 Lymphocytes # (Auto) 1.0 TH/MM3 Monocytes # (Auto) 0.8 TH/MM3 Eosinophils # (Auto) 0.1 TH/MM3 Basophils # (Auto) 0.0 TH/MM3 CBC Comment DIFF FINAL Differential Comment Sodium Level 146 MEQ/L Potassium Level 3.6 MEQ/L Chloride Level 107 MEQ/L Carbon Dioxide Level 26.1 MEQ/L Anion Gap 13 MEQ/L Blood Urea Nitrogen 28 MG/DL Creatinine 1.11 MG/DL Estimat Glomerular Filtration 63 ML/MIN Rate Random Glucose 101 MG/DL Calcium Level 9.0 MG/DL Magnesium Level 2.2 MG/DL Total Bilirubin 0.7 MG/DL Aspartate Amino Transf 33 U/L (AST/SGOT) Alanine Aminotransferase 18 U/L (ALT/SGPT) Alkaline Phosphatase 85 U/L Total Protein 6.7 GM/DL Albumin 2.9 GM/DL Assessment and Plan Problem List: (1) Coronary artery disease Assessment and Plan: Cath findings as reported, severe 3 vessel [place] CAD, patent MONTANEZ to LAD, patent SV to OM, occluded SV to RCA (new compared to 2014), s/p unsuccessful revascularization of this graft. Patient now going to hospice care. (2) Paroxysmal atrial fibrillation Assessment and Plan: Remains in NSR. Patient now going to hospice care (3) Ischemic cardiomyopathy Assessment and Plan: EF around 35%, with possibly severe MR by cath. Findings similar on echo. Patient appears very comfortable, now to go to hospice. Code Status No Code Problem Qualifiers (1) Coronary artery disease: Qualified Code: I25.700 - Coronary artery disease involving coronary bypass graft of [place] heart with unstable angina pectoris Herbert Gomez MD Nov 23, 2016 13:23
--- NOTE | 2016-12-06 09:52 | HHI.DS ---
Discharge Summary Admission Date Nov 17, 2016 at 08:44 Discharge Date: Nov 23, 2016 Admitting Diagnosis PNA, r/o TN (1) Acute systolic heart failure ICD Code: I50.21 Diagnosis: Principal (2) Severe mitral regurgitation ICD Code: I34.0 Diagnosis: Principal (3) Acute hypoxemic respiratory failure ICD Code: J96.01 Diagnosis: Principal (4) Ischemic cardiomyopathy ICD Code: I25.5 Diagnosis: Principal (5) Non-ST elevation TN (NSTEMI) ICD Code: I21.4 Diagnosis: Principal (6) Community acquired pneumonia ICD Code: J18.9 Diagnosis: Principal (7) Atypical chest pain ICD Code: R07.89 Diagnosis: Principal (8) Troponin level elevated ICD Code: R74.8 Diagnosis: Principal (9) Coronary artery disease ICD Code: I25.9 Diagnosis: Secondary (10) Hyperlipidemia ICD Code: E78.5 Diagnosis: Secondary (11) Hypertension ICD Code: I10 Diagnosis: Secondary (12) Paroxysmal atrial fibrillation ICD Code: I48.0 Diagnosis: Secondary Brief History 86 year-old male with a history of hypertension, CAD, prior history of CABG who presented to the ED for evaluation of shortness of breath 2 days along with atypical substernal chest pain. Patient was seen at [facility] on 11/16/16 and diagnosed with pneumonia for which he was treated with antibiotics, admitted for observation and had PE ruled out per patient account, however sign AMA. He Came today because, stated equal hardly breathe and he was having constant nonradiating substernal chest pain along with nonproductive cough. He denies any febrile episode. Patient states all imaging studies at [facility] where unremarkable. He has no GI bleed PE at Discharge GENERAL: NAD SKIN: Warm and dry. HEAD: Normocephalic. EYES: No scleral icterus. No injection or drainage. NECK: Supple, trachea midline. No JVD or lymphadenopathy. CARDIOVASCULAR: Regular rate and rhythm without murmurs, gallops, or rubs. RESPIRATORY: Breath sounds equal bilaterally. No accessory muscle use. GASTROINTESTINAL: Abdomen soft, non-tender, nondistended. MUSCULOSKELETAL: No cyanosis, or edema. BACK: Nontender without obvious deformity. No CVA tenderness. Transfer Summary Patient is an 86-year-old male admitted to hospitalist service on 11/17 with community-acquired pneumonia, NSTEMI. [facility] consulted on 11/18/16 evening for acute respiratory failure. Patient underwent cardiac catheterization . Post cardiac catheterization and was extremely short of breath and then developed altered mental status and was unresponsive and hypoxemic. Stat chest x-ray showed pulmonary edema. Patient was tachypneic, using accessory muscles to breath, and he was cyanotic. Patient was emergently intubated and placed on mechanical ventilation by Dr. Gilman. Cath findings-severe 3 vessel [place] CAD, patent MONTANEZ to LAD, patent SV to OM, occluded SV to RCA (new compared to 2013), s/p unsuccessful revascularization of this graft. Dr. Gomez recommended medical therapy. Left ventriculogram EF possibly around 35%, with possibly severe MR. 11/19: Remains intubated sedated with propofol. Urine output 2 L in 24 hours. Receiving Lasix 40 mg daily increased to 40 every 8 hours. 2-D echo sev MR, EF 35-40%. Akinesis of mid distal anterior septum and anterior myocardium. 11/20: Remains intubated sedated. Urine output 4 L in 24 hours, with increased dose of Lasix. Discussed with Dr. Gomez and the patient's family, they are not interested in surgical options for MR. I recommended medical weaning to extubation, and transition to comfort measures if the patient does not do well. 11/21: Patient remains intubated sedated. Family at bedside. Started Precedex and extubated to [place]. UOP 3.9 L in 24 hours 11/22/16: Extubated yesterday tolerating well. Breathing comfortably, appears to be protecting airway. Urine output more than 5.5 L in 24 hours. Currently on Precedex 0.8 g per KG per hour-RN has started to wean. I have consulted palliative care to address goals of care After meeting with palliative care, patient's family decided to opt for palliative and hospice. Patient was discharged to hospice care center on , with comfort measures only Hospital Course see transfer summary Pt Condition on Discharge: Deteriorating Discharge Disposition: Hospice/Med Facility Discharge Instructions DIET: Follow Instructions for: Nothing By Mouth Activities you can perform: Continue Bedrest Alejandro Graham MD Dec 06, 2016 09:52
== END 2016-11-23 09:32 | disposition hospice, inpatient (51) | DRG 250 ==
LOC: NEPC 06:53 → NEDA 08:44 → N05A 11:10 → HIME 11-18 01:20
PROVIDERS: ADMIT Internal Medicine; ATTEND Internal Medicine
PROC: 02703ZZ Dilation of Coronary Artery, One Artery, Percutaneous Approach (ICD-10-PCS; 2016-11-18)
PROC: 0BH17EZ Insertion of Endotracheal Airway into Trachea, Via Natural or Artificial Opening (ICD-10-PCS; 2016-11-18)
PROC: 05HM33Z Insertion of Infusion Device into Right Internal Jugular Vein, Percutaneous Approach (ICD-10-PCS; 2016-11-18)
PROC: 4A023N7 Measurement of Cardiac Sampling and Pressure, Left Heart, Percutaneous Approach (ICD-10-PCS; 2016-11-18)
PROC: B2111ZZ Fluoroscopy of Multiple Coronary Arteries using Low Osmolar Contrast (ICD-10-PCS; 2016-11-18)
PROC: B2181ZZ Fluoroscopy of Left Internal Mammary Bypass Graft using Low Osmolar Contrast (ICD-10-PCS; 2016-11-18)
PROC: B2151ZZ Fluoroscopy of Left Heart using Low Osmolar Contrast (ICD-10-PCS; 2016-11-18)
PROC: B2131ZZ Fluoroscopy of Multiple Coronary Artery Bypass Grafts using Low Osmolar Contrast (ICD-10-PCS; 2016-11-18)
PROC: 5A1945Z Respiratory Ventilation, 24-96 Consecutive Hours (ICD-10-PCS; principal; 2016-11-18 15:15)
DX: I21.4 Non-ST elevation (NSTEMI) myocardial infarction (principal); J18.9 Pneumonia, unspecified organism; J96.01 Acute respiratory failure with hypoxia; I50.23 Acute on chronic systolic (congestive) heart failure; I25.719 Atherosclerosis of autologous vein coronary artery bypass graft(s) with unspecified angina pectoris; I25.82 Chronic total occlusion of coronary artery; I34.0 Nonrheumatic mitral (valve) insufficiency; I48.0 Paroxysmal atrial fibrillation; G62.9 Polyneuropathy, unspecified; I25.119 Atherosclerotic heart disease of native coronary artery with unspecified angina pectoris; I44.7 Left bundle-branch block, unspecified; I73.9 Peripheral vascular disease, unspecified; E78.5 Hyperlipidemia, unspecified; I25.2 Old myocardial infarction; I25.118 Atherosclerotic heart disease of native coronary artery with other forms of angina pectoris; J45.909 Unspecified asthma, uncomplicated; N40.0 Benign prostatic hyperplasia without lower urinary tract symptoms; I10 Essential (primary) hypertension; I25.5 Ischemic cardiomyopathy; K21.9 Gastro-esophageal reflux disease without esophagitis; Z87.891 Personal history of nicotine dependence; Z91.19 Patient's noncompliance with other medical treatment and regimen; Z79.01 Long term (current) use of anticoagulants; Z66 Do not resuscitate; Z51.5 Encounter for palliative care; Z87.820 Personal history of traumatic brain injury; Z86.79 Personal history of other diseases of the circulatory system; Z95.1 Presence of aortocoronary bypass graft; Z95.5 Presence of coronary angioplasty implant and graft; M54.9 Dorsalgia, unspecified; G89.29 Other chronic pain; M17.0 Bilateral primary osteoarthritis of knee; M19.019 Primary osteoarthritis, unspecified shoulder
CPT/HCPCS: 31500; 36556; 36600; 71010; 76937; 80048; 80053; 82550; 82805; 83735; 83880; 84100; 84484; 85002; 85025; 85610; 85730; 87641; 87804; 93005; 93306; 93459; 94002; 94003; 94640; 94664; 96374; C1725; C1760; C1769; C1887; C1893; C9113; C9399; G0269; J0456; J0696; J1160; J1644; J1940; J2060; J2250; J2270; J2930; J3010; J3246; J3480; J7030; J7050; Q9967